=== PATIENT | female | born 1955 | race Caucasian/White ===

== ENCOUNTER → 2024-10-11 | Outpatient (CLI) | payer MEDICARE, BC, SELFPAY ==
[2024-10-11 15:03] LABS: Amylase 59 U/L (30-118); Cardiac Risk Estimate 3.5 RATIO (3.7-5.6); Cholesterol 180 mg/dL (132-200); HDL Cholesterol 52 mg/dL (40-60); LDL Cholesterol,Calculated 103 mg/dL (0-130); Lipase 62 U/L (12-53); Triglycerides 125 mg/dL (30-150)
[2024-10-11 16:07] LABS: Glucose Estimated Average 88 mg/dL (80-131); Hemoglobin A1C 4.7 % Hgb (4.8-6.0)
== END | disposition home or self-care (01) ==
LOC: COPL 11:12
PROVIDERS: PCP Family Medicine; Referring Provider Nurse Practitioner Family; Visit Provider Nurse Practitioner Family
DX: E78.5 Hyperlipidemia, unspecified (principal); R73.03 Prediabetes; K92.1 Melena; R19.5 Other fecal abnormalities
CPT/HCPCS: 36415; 80061; 82150; 83036; 83690

== ENCOUNTER → 2024-10-29 | Outpatient (CLI) | payer MEDICARE, BC, SELFPAY ==
--- NOTE | 2024-10-29 13:20 | XR_ITS ---
Examination: Bone densitometry Date and time of exam:October 29, 2024 1339 hours INDICATIONS: Hysterectomy age 37 postmenopausal femur fracture levothyroxine 10 years, personal history osteopenia Technique: Lumbar spine and hip total bone mineralization values of an calculated. Peak reference and age match control results have been displayed. Findings: Lumbar spine total bone mineralization is1.032 gm/cm2. This is 0.1 standard deviations below peak reference. This is 1.8 standard deviations above age-matched controls. Hip total bone mineralization is 0.824 gm/cm2 This is 1.0 standard deviations below peak reference. This is 0.4 standard deviations above age-matched controls Impression: There is normal mineralization based on lumbar spine measurements. There is osteopenia based on hip measurements Lumbar mineralization is decreased 0.1% compared with 07/26/2022 Hip mineralization is decreased 6.5% compared with July 26, 2022
== END | disposition home or self-care (01) ==
LOC: CDIM 13:11
PROVIDERS: PCP Family Medicine; Referring Provider Nurse Anesthetist, Certified Registered; Visit Provider Nurse Anesthetist, Certified Registered
DX: M85.88 Other specified disorders of bone density and structure, other site (principal)
CPT/HCPCS: 77080

== ENCOUNTER → 2024-11-27 | Outpatient (CLI) | payer MEDICARE, BC, SELFPAY ==
--- NOTE | 2024-11-27 15:13 | XR_ITS ---
Examination: Hand, right 3 views Technique: Hand AP, oblique, lateral 3 views Date and time of exam: November 27, 2024 1544 hours INDICATIONS: Right hand pain post injury one month ago FINDINGS: Severe osteopenia No acute fracture No dislocation Mild osteoarthritis interphalangeal joints IMPRESSION: No acute fracture
--- NOTE | 2024-11-27 15:13 | XR_ITS ---
Examination: Right elbow 3 views Technique: Elbow AP, oblique, lateral 3 views Exam date and time: November 27, 2024 1544 hours INDICATIONS: Injury to the elbow one month ago with elbow pain. FINDINGS: No elbow fracture or dislocation No elbow effusion IMPRESSION: No elbow fracture or dislocation.
--- NOTE | 2024-11-27 15:13 | XR_ITS ---
Examination: Wrist, right 3 views Technique: Wrist AP, oblique, lateral 3 views Date and time of exam: November 27, 2024 1544 hours INDICATIONS: Injury to the wrist one month ago, wrist pain. FINDINGS: Significant osteopenia Significant narrowing navicular trapezium joint No acute fracture No foreign body IMPRESSION: No acute fracture
== END | disposition home or self-care (01) ==
PROVIDERS: PCP Family Medicine
DX: S69.91XA Unspecified injury of right wrist, hand and finger(s), initial encounter (principal); S59.901A Unspecified injury of right elbow, initial encounter; X58.XXXA Exposure to other specified factors, initial encounter
CPT/HCPCS: 73080; 73110; 73130

== ENCOUNTER 2024-12-03 09:10 | Inpatient (IN) | payer MEDICARE, BC, SELFPAY ==
[2024-12-03] VITALS (15 sets, daily range): BP systolic 113–175; BP diastolic 60–113; PULSE 89–116; RESP 15–97; TEMP 36.9–38.7; O2SAT 96–98; BMI 18.0
--- NOTE | 2024-12-03 11:14 | EDNOTE_ITS ---
<Statement entered by Val Duarte MD - 12/05/24 15:28> As co-signing physician, I was present and available for consult prn. I concur with the plan and care as documented by the midlevel provider. ED General RME/HPI General Chief complaint: Altered Mental Status Stated complaint: AMS X 3 DAYS Time Seen by Provider: 12/03/24 11:09 Arrival date/time: 12/03/24 09:10 CC: Altered mental status HPI ongoing for the past 2 days at bedside said the patient has been sick when pressed he states the patient has decreased appetite. Patient is restless fidgety, nursing now reports that the patient has a core temp of 101.4. Sepsis initiated. At 1550 patient's told me the patient had nerve probes removed 5 days ago from her back Related Data Home Medications ?Medication ?Instructions ?Recorded ?Confirmed divalproex 500 mg tablet,delayed 1,500 mg PO HS #0 tabs 05/29/14 08/01/24 release (Depakote) TIZANIDINE HCL 4 mg PO HS ##0 06/25/15 08/01/24 pregabalin 75 mg capsule (Lyrica) 150 mg PO QPM #0 caps 06/25/15 08/01/24 erenumab-aooe 70 mg/mL 70 mg subcut QMONTH 06/21/18 08/01/24 subcutaneous auto-injector (Aimovig Autoinjector) levothyroxine 50 mcg tablet 50 mcg PO QDAY 06/21/18 08/01/24 omeprazole 40 mg capsule,delayed 40 mg PO QDAY 06/21/18 08/01/24 release oxybutynin chloride 5 mg tablet 5 mg PO DAILY 06/21/18 08/01/24 dicyclomine 10 mg capsule 10 mg PO TID 07/12/21 08/01/24 meclizine 12.5 mg tablet 12.5 mg PO Q12HR 07/12/21 08/01/24 nebivolol 5 mg tablet (Bystolic) 5 mg PO QDAY 07/12/21 08/01/24 venlafaxine 150 mg 150 mg PO QAM 07/12/21 08/01/24 capsule,extended release 24 hr venlafaxine 75 mg capsule,extended 75 mg PO QAM 07/12/21 08/01/24 release 24 hr atogepant 60 mg tablet (Qulipta) 60 mg PO QDAY 08/01/24 08/01/24 loratadine 10 mg tablet 10 mg PO QDAY 08/01/24 08/01/24 trazodone 50 mg tablet 50 mg PO QDAY 08/01/24 08/01/24 ubrogepant 100 mg tablet (Ubrelvy) 100 mg PO QDAY 08/01/24 08/01/24 Allergies Allergy/AdvReac Type Severity Reaction Status Date / Time Sulfa (Sulfonamide Allergy Severe HIVES Verified 08/01/24 12:19 Antibiotics) Review of Systems Review of Systems ROS Unobtainable: unobtainable due to mental status Past Medical History Past Medical History NEUROLOGIC: Positive Neurological Disorders and Migraine; Negative Seizures CARDIAC: Positive Cardiac Disorders and Hypertension; Negative Congestive Heart Failure RESPIRATORY: Positive Asthma (MILD ALLERGY RELATED), Pneumonia and Sleep Apnea; Negative Chronic Obstructive Pulmonary Disease (COPD) GASTROINTESTINAL: Positive Gastrointestinal Disorders (LLQ ABDOMINAL PAIN), Irritable Bowel and Gastroesophageal Reflux Disease; Negative Hepatitis GENITOURINARY: Positive Genitourinary Disorders and Renal Disease REPRODUCTIVE: Positive Previous Pregnancies (x4) MUSCULOSKELETAL: Positive Musculoskeletal Disorders and Arthritis ENDOCRINE: Positive Endocrine Disorders and Hypothyroidism; Negative Diabetes Mellitus Type 1 or Diabetes Mellitus Type 2 HEMATOLOGIC: Negative Blood Disorders PSYCHO/SOCIAL: Positive Depression and Anxiety OTHER HISTORY: Positive Anesthesia Reactions (HIGH TOLERANCE FOR MEDICATIONS), Chicken Pox and Measles; Negative Hospitalization, Shingles, Falls (NO FALLS BUT SLIGHTLY UNSTEADY), Blood Transfusions, Blood Transfusion Reaction, Chemotherapy, Radiation Therapy, MRSA or Cancer Family History FAMILY HISTORY: Positive Family Cancer (MOTHER- COLON CA) Surgical History SURGICAL: Positive Joint Replacement (LEFT KNEE), Open Reduction Internal Fixation (LEFT THIGH), Hysterectomy and Section; Negative Cardiac Surgery, Endocrine Surgery or Abdominal Surgery Social History SMOKING STATUS: Former smoker ED Exam Narrative Physical exam: [General: Restless, mildly agitated but not in any acute distress Head normocephalic HEENT: Eyes: Pupils are PERRLA EOMs are intact mouth pink dry membranes uvula is midline swallow symmetrical phonation is normal. All other subsystems of HEENT within acceptable limits Neck is supple nontender Chest equal chest rise nontender to palpation Respiratory: Clear to auscultation no wheezes crackles or rubs CV: Rate rhythm is regular no murmurs rubs or clicks Abdomen is distended secondary to body habitus soft nontender no masses positive bowel sounds all 4 quadrants Back: No CVA tenderness no spinous process tenderness from cervical spine thoracic and lumbar spine Skin: Intact no petechiae rash induration ulceration or crepitus Extremities: Moving all extremity against resistance cap refill less than 2 seconds neurosensory intact Neuro: Awake alert agitated Course Course Course Narrative: At 1329 the patient continues to be mildly agitated and I am not able to hold still enough for CT, at this time I ordered 2 mg of Ativan to calm her for head CT. Also ordered a VBG. Patient case and presentation presented Dr. Villareal neurologist, who is familiar with the patient, once the patient admitted he will consult the patient will need a LP to hold off on all any antibiotics or antivirals until the LP is completed. Quality Measures none Orders Category Date Time Status Bedside COVID-19 Antigen Test NOW Care 12/03/24 11:12 Active Bedside Influenza A&B Antigen Test NOW Care 12/03/24 11:13 Completed Regroover STAT Care 12/03/24 11:15 Active Continuous Pulse Oximetry STAT Care 12/03/24 11:15 Completed EKG (ED ONLY) *Do not use* NOW Care 12/03/24 11:15 Active In and Out Catheter X1PRN Care 12/03/24 11:15 Completed Insert IV NOW Care 12/03/24 11:15 Completed NPO STAT Care 12/03/24 11:15 Active Saline [Insert IV] NOW Care 12/03/24 11:12 Active Strict Intake and Output Routine Care 12/03/24 11:[address] head/brain wo con Stat Exams 12/03/24 12:35 Completed EKG (ED Only) Stat Exams 12/03/24 11:15 Ordered Acetaminophen Stat Lab 12/03/24 15:37 Ordered Ammonia Stat Lab 12/03/24 13:35 Completed B-Type Natriuretic Peptide Stat Lab 12/03/24 11:20 Completed Blood Culture (Lab) Stat Lab 12/03/24 11:25 Received CBC Stat Lab 12/03/24 11:20 Completed Comprehensive Metabolic Panel Stat Lab 12/03/24 11:20 Completed Drug Screen,Urine Stat Lab 12/03/24 13:16 Completed Free T4 (Free Thyroxine) Stat Lab 12/03/24 15:37 Ordered LDH (Lactate Dehydrogenase) Stat Lab 12/03/24 11:20 Completed Lactate (Lactic Acid) Stat Lab 12/03/24 11:20 Completed Lipase Stat Lab 12/03/24 11:20 Completed Magnesium Stat Lab 12/03/24 11:20 Completed Partial Thromboplastin Time Stat Lab 12/03/24 11:20 Completed Phosphorous Stat Lab 12/03/24 11:20 Completed Procalcitonin Stat Lab 12/03/24 11:20 Completed Prothrombin Time with INR Stat Lab 12/03/24 11:20 Completed Salicylate Stat Lab 12/03/24 15:37 Ordered TSH [Thyroid Stimulating Hormone] Stat Lab 12/03/24 15:37 Ordered Troponin I Stat Lab 12/03/24 11:20 Completed Urinalysis Stat Lab 12/03/24 13:16 Completed Urine Culture Stat Lab 12/03/24 13:16 Received VBG [Venous Blood Gas] Stat Lab 12/03/24 13:35 Completed Acetaminophen Tab [Tylenol Tab] Med 12/03/24 11:16 Discontinued 650 mg PO X1 ONE Ibuprofen Tab [Motrin Tab] Med 12/03/24 14:26 Discontinued 600 mg PO X1 ONE LORazepam [Ativan Inj] Med 12/03/24 12:35 Discontinued 1 mg IVP X1 ONE LORazepam [Ativan Inj] Med 12/03/24 13:25 Discontinued 2 mg IVP X1 ONE Sodium Chloride 0.9% 1000 ml [Ns] 1,000 ml Med 12/03/24 11:13 Discontinued IV 999 mls/hr Sodium Chloride 0.9% 1000 ml [Ns] 1,000 ml Med 12/03/24 11:17 Discontinued IV 999 mls/hr Oxygen Delivery NOW RT 12/03/24 11:15 Active Vital Signs Vital signs: Vital Signs Temperature 98.8 F 12/03/24 09:14 Pulse Rate 109 H 12/03/24 09:14 Respiratory Rate 19 12/03/24 09:14 Blood Pressure 175/87 H 12/03/24 09:14 Pulse Oximetry (%) 98 12/03/24 09:14 Oxygen Delivery Method Room Air 12/03/24 09:14 [facility] Patient data External records reviewed:: [facility] previous records and EMS form Clinical information provided by:: patient and EMS Social determinants that could affect healthcare access:: none Patient has the following chronic illnesses:: Hypothyroidism hypertension CKD How is presenting disease/condition affected by chronic disease/condition?: u neffected by Evaluation data The following diagnostics were reviewed and interpreted by me:: lab results, radiology exam(s) and EKG tracing(s) Lab and/or radiology exams considered but not ordered:: CBC shows a mild leukocytosis no anemia thrombocytopenia Coags within acceptable limits VBG shows a pH of 7.57 CO2 of 19 pO2 132 CMP shows a sodium 135 potassium 3.5 chloride of 101 CO2 of 21.5 BUN of 33 creatinine 1.6 glucose 133. Urine is negative for UTI UDS is positive for THC CT of the head is interpreted by me read by radiology shows motion artifact but no gross abnormality Ammonia level is negative Interpretation Summary: Patient continues to be agitated and restless in the bed. Patient's case discussed with Dr. Villareal who is familiar with the patient sees her on a regular basis and agrees to consult on this patient for admission. Dr. Rincon the resident accepts the patient for admission for Dr. Meng, attending. Medications Medications considered but not ordered:: None Medication administrations:: Medication Administration History Discontinued Medications Acetaminophen (Acetaminophen 325 Mg Tablet) 650 mg PO X1 ONE Stop: 12/03/24 11:17 Last Admin: 12/03/24 11:28 Dose: 650 mg Documented By: CANDICE Sodium Chloride (Ns) 1,000 mls @ 999 mls/hr IV .Q1H1M ONE Stop: 12/03/24 12:13 Last Infusion: 12/03/24 12:42 Dose: Infused Documented By: Admin: 12/03/24 11:30 Dose: 999 mls/hr Documented By: CANDICE Sodium Chloride (Ns) 1,000 mls @ 999 mls/hr IV .Q1H1M ONE Stop: 12/03/24 12:17 Last Infusion: 12/03/24 12:42 Dose: Infused Documented By: Admin: 12/03/24 11:30 Dose: 999 mls/hr Documented By: CANDICE Ibuprofen (Ibuprofen Tab 600 Mg Tablet) 600 mg PO X1 ONE Stop: 12/03/24 14:27 Lorazepam (Lorazepam 2 Mg/Ml Vial) 1 mg IVP X1 ONE Stop: 12/03/24 12:36 Last Admin: 12/03/24 12:43 Dose: 1 mg Documented By: CANDICE Lorazepam (Lorazepam 2 Mg/Ml Vial) 2 mg IVP X1 ONE Stop: 12/03/24 13:26 Last Admin: 12/03/24 14:20 Dose: 2 mg Documented By: DB None Consultations Consultation(s) initiated? (list below): No Diagnosis Differential Diagnosis ED Complaint MDM: Altered mental status intercranial hemorrhage sepsis Most likely diagnosis given after review of the tests above:: Altered mental status Admission Indicated Admission indicated?: indicated Explain why admission is indicated or not indicated:: Further medical management Admission Request Was there a request for admission?: No Disposition Plan Disposition Plan: Admit Medical Decision Making Differential Diagnosis Differential Diagnosis: Altered mental status intercranial hemorrhage sepsis Lab Data 12/03/24 11:20 12/03/24 11:20 Labs: Lab Results 12/03/24 12/03/24 12/03/24 Range/Units 11:20 13:16 13:35 WBC 12.4 H (3.6-11.0) Thou/mm3 RBC 3.74 L (4.00-5.20) Miln/mm3 Hgb 11.5 L (12.0-16.0) g/dL Hct 32.1 L (36.0-46.0) % MCV 86 (80-100) fL MCH 30.7 (25.0-35.0) pg MCHC 35.8 (31.0-37.0) g/dl RDW Std Deviation 41.5 (36.4-46.3) fL Plt Count 240 (140-440) Thou/mm3 Neut % (Auto) 76 (37-80) % Lymph % (Auto) 15 (10-50) % [place] % (Auto) 9 (0-12) % Eos % (Auto) 0 (0-10) % Baso % (Auto) 0 (0-2.5) % Neut # (Auto) 9.5 H (1.8-7.7) Thou/mm3 Lymph # (Auto) 1.8 (1.0-4.8) Thou/mm3 [place] # (Auto) 1.1 H (0.0-0.8) Thou/mm3 Eos # (Auto) 0.0 (0.0-0.5) Thou/mm3 Baso # (Auto) 0.0 (0.0-0.2) Thou/mm3 Immature Gran # (Auto) 0.04 H (0.00-0.00) Thou/mm3 Absolute Nucleated RBC 0.00 (0.00-0.00) Thou/mm3 Immature Gran % 0 (0-0) % Nucleated RBC % 0 (0) /100 WBC PT 11.5 (9.0-12.2) Seconds INR 1.1 (0.9-1.3) APTT 28.5 (22.0-36.0) Seconds VBG pH 7.57 (7.33-7.66) VBG pCO2 19 L (36-56) mmHg VBG pO2 132 H (15-58) mmHg VBG O2 Sat (Torie) 100 H (96-97) % VBG Base Excess -3 (-3-3) Sodium 135 L (136-145) mMol/L Potassium 3.5 (3.4-5.1) mMol/L Chloride 101 (98-107) mMol/L Carbon Dioxide 21.5 (20.0-31.0) mMol/L Anion Gap 13 (7-16) BUN 33 H (9-23) mg/dL Creatinine 1.6 H (0.6-1.3) mg/dL Estim Creat Clear Calc Not Performed. eGFR 35 L (60 - ) See Note BUN/Creatinine Ratio 21 H (12-20) Ratio Glucose 133 H (74-106) mg/dL Calculated Osmolality 279 (275-295) Lactic Acid 1.9 (0.4-2.0) mMol/L Calcium 10.6 (8.3-10.6) mg/dL Corrected Calcium 10.6 H (8.5-10.1) mg/dL Phosphorus 3.1 (2.4-5.1) mg/dL Magnesium 1.5 L (1.6-2.6) mg/dL Total Bilirubin 0.8 (0.3-1.2) mg/dL AST 55 H (0-34) U/L ALT 34 (10-49) U/L Alkaline Phosphatase 43 L (46-116) U/L Ammonia < 10 L (11-32) uMol/L Lactate Dehydrogenase 310 H (120-246) U/L Troponin I 0.024 (0.0-0.045) ng/mL B-Natriuretic Peptide 105 H (0-100) pg/mL Total Protein 7.9 (5.7-8.2) gm/dL Albumin 4.5 (3.4-4.8) gm/dL Globulin 3.4 (2.3-3.5) gm/dL Albumin/Globulin Ratio 1.3 (1.2-2.2) Lipase 42 (12-53) U/L Procalcitonin 0.08 (0.0-0.49) ng/ml Ur Collection Type Clean Catch Urine Color Yellow (Lt Yel-Yel) Urine Clarity Clear (Clear/Hazy) Urine pH 8.0 H (5.0-7.0) Ur Specific [place] 1.019 (1.001-1.035) Urine Protein 1+ A (Neg - Trace) Urine Glucose (UA) Negative (Negative) Urine Ketones 1+ A (Negative) Urine Blood Negative (Negative) Urine Nitrite Negative (Negative) Urine Bilirubin Negative (Negative) Urine Urobilinogen (Auto) Negative (0.0-1.0) mg/dL Ur Leukocyte Esterase Negative (Negative) Urine RBC < 1 (0-3) /hpf Urine WBC 1 (0-5) /hpf Ur Squamous Epith Cells < 1 (0-5) /hpf Urine Bacteria None (None) Urine Opiates Screen Negative (Negative) Urine Fentanyl Screen Negative (Negative) Ur Barbiturates Screen Negative (Negative) U Amphetamin/Meth Scrn Negative (Negative) U Benzodiazepines Scrn Negative (Negative) U Cocaine Metab Screen Negative (Negative) U Marijuana (THC) Screen Positive A (Negative) Discharge Plan Plan Patient Disposition: Other Care w/in Hosp ([facility]) Patient condition on transfer: Stable Prescriptions/Referrals Prescriptions/Med Rec: No Action divalproex [Depakote] 500 MG tablet,delayed release (DR/EC) 1,500 mg PO HS Qty: 0 pregabalin [Lyrica] 75 MG capsule 150 mg PO QPM Qty: 0 TIZANIDINE HCL 2 MG capsule 4 mg PO HS Qty: 0 omeprazole 40 mg Capsule,Delayed Release(Dr/Ec) 40 mg PO QDAY levothyroxine 50 mcg Tablet 50 mcg PO QDAY oxybutynin chloride 5 mg Tablet 5 mg PO DAILY Aimovig Autoinjector 70 mg/mL Auto-Injector 70 mg SUB-Q QMONTH meclizine 12.5 mg tablet 12.5 mg PO Q12HR Patient Comments: TAKE 2 TABLETS BY MOUTH NEEDED TWICE A DAY FOR 10 DAYS nebivolol [Bystolic] 5 mg tablet 5 mg PO QDAY Patient Comments: TAKE 1 TABLET BY MOUTH EVERY DAY venlafaxine 75 mg capsule,extended release 24hr 75 mg PO QAM Patient Comments: TAKE ONE CAPSULE BY MOUTH EVERY MORNING venlafaxine 150 mg capsule,extended release 24hr 150 mg PO QAM Patient Comments: TAKE 2 CAPSULES BY MOUTH EVERY MORNING dicyclomine 10 mg capsule 10 mg PO TID trazodone 50 mg tablet 50 mg PO QDAY Patient Comments: TAKE 1 TABLET BY MOUTH EVERY DAY AT BEDTIME NEEDED FOR INSOMNIA FOR 90 DAYS loratadine 10 mg Tablet 10 mg PO QDAY Ubrelvy 100 mg Tablet 100 mg PO QDAY Qulipta 60 mg tablet 60 mg PO QDAY Patient Comments: TAKE 1 TABLET BY MOUTH EVERY DAY Referrals: Jadon Smith MD [Primary Care Provider] - In 1 week Problem List Clinical Impression: Altered mental status Patient/Caregiver Discharge Instructions Print Language: Macedonian Stand Alone Forms: Seema Award Info., Patient Portal Info Letter PA/TRACK MAN Supervising Physician PA/TRACK MAN Supervising Physician: Fernando Duron ENP
[2024-12-03] MEDS: ACETAMINOPHEN 325 MG TABLET 650 MG PO (11:28)
[2024-12-03] MEDS: SODIUM CHLORIDE 0.9% 1000 ML 1,000 ML 999 ML IV ×3 (11:30→18:06)
[2024-12-03 11:36] LABS: Lactate (Lactic Acid) 1.9 mMol/L (0.4-2.0)
[2024-12-03 11:42] LABS: Basophils % (Auto) 0 % (0-2.5); Eosinophils % (Auto) 0 % (0-10); Hematocrit 32.1 % (36.0-46.0); Hemoglobin 11.5 g/dL (12.0-16.0); Immature Granulocytes % (Auto) 0 % (0-0); Immature Granulocytes Auto 0.04 Thou/mm3 (0.00-0.00); Lymphocytes # (Auto) 1.8 Thou/mm3 (1.0-4.8); Lymphocytes % (Auto) 15 % (10-50); Mean Corpuscular HGB Conc 35.8 g/dl (31.0-37.0); Mean Corpuscular Hemoglobin 30.7 pg (25.0-35.0); Mean Corpuscular Volume 86 fL (80-100); Monocytes # (Auto) 1.1 Thou/mm3 (0.0-0.8); Monocytes % (Auto) 9 % (0-12); Neutrophils # (Auto) 9.5 Thou/mm3 (1.8-7.7); Neutrophils % (Auto) 76 % (37-80); Nucleated Red Blood Cell % 0 /100 WBC (0); Platelet Count 240 Thou/mm3 (140-440); RDW Standard Deviation 41.5 fL (36.4-46.3); Red Blood Count 3.74 Miln/mm3 (4.00-5.20); White Blood Count 12.4 Thou/mm3 (3.6-11.0)
[2024-12-03 11:53] LABS: INR 1.1 (0.9-1.3); Partial Thromboplastin Time 28.5 Seconds (22.0-36.0); Prothrombin Time 11.5 Seconds (9.0-12.2)
[2024-12-03 12:08] LABS: Alanine Aminotransferase 34 U/L (10-49); Albumin, Serum 4.5 gm/dL (3.4-4.8); Albumin/Globulin Ratio 1.3 (1.2-2.2); Alkaline Phosphatase 43 U/L (46-116); Anion Gap 13 (7-16); Aspartate Amino Transferase 55 U/L (0-34); BUN/Creatinine Ratio 21 Ratio (12-20); Bilirubin,Total 0.8 mg/dL (0.3-1.2); Blood Urea Nitrogen 33 mg/dL (9-23); Calcium 10.6 mg/dL (8.3-10.6); Calcium (Corrected) 10.6 mg/dL (8.5-10.1); Carbon Dioxide 21.5 mMol/L (20.0-31.0); Chloride 101 mMol/L (98-107); Creatinine (Component) 1.6 mg/dL (0.6-1.3); Globulin 3.4 gm/dL (2.3-3.5); Glucose 133 mg/dL (74-106); LDH (Lactate Dehydrogenase) 310 U/L (120-246); Lipase 42 U/L (12-53); Magnesium 1.5 mg/dL (1.6-2.6); Osmolality,Calculated 279 (275-295); Phosphorous 3.1 mg/dL (2.4-5.1); Potassium 3.5 mMol/L (3.4-5.1); Procalcitonin 0.08 ng/ml (0.0-0.49); Sodium 135 mMol/L (136-145); Total Protein 7.9 gm/dL (5.7-8.2); Troponin I 0.024 ng/mL (0.0-0.045); eGFR 35 See Note
[2024-12-03 12:20] LABS: B-Type Natriuretic Peptide 105 pg/mL (0-100)
--- NOTE | 2024-12-03 12:26 | PC.NURSE ---
Unable to complete EKG due to Pt moving
--- NOTE | 2024-12-03 12:35 | XR_ITS ---
Examination: CT brain head without contrast. 2-D sagittal coronal reconstructions Date and time of exam:December 03, 2024 1455 hours INDICATIONS: Altered mental status today COMPARISON: June 16, 2018 CTDI: vol (mGy):45.2 DLP: (mGycm):973 Technique: Multiple CT axial sections of the brain have been obtained, 5 mm slice thickness. Contrast has not been administered. 2-D sagittal, coronal reconstructions have been obtained Low dose protocols were performed. One or more of the following dose reduction techniques were used; automated exposure control, adjustment of the mA and/or KV according to patient size, use of iterative reconstruction technique. Findings: Patient motion significantly degrades scan image quality Ventricles are not enlarged No gross hemorrhage or mass effect IMPRESSION: Patient motion significantly degrades scan image quality No gross hemorrhage or mass effect
[2024-12-03] MEDS: LORazepam 2 MG/ML VIAL 1 MG IVP (12:43)
[2024-12-03 13:29] LABS: Collection Type, Urine Clean Catch
[2024-12-03 13:45] LABS: Base Excess, Venous -3 (-3-3); O2 Saturation, Venous 100 % (96-97); PCO2, Venous 19 mmHg (36-56); PO2, Venous 132 mmHg (15-58); pH, Venous 7.57 (7.33-7.66)
[2024-12-03 13:48] LABS: Bilirubin,Urine Negative (Negative); Blood,Urine Negative (Negative); Clarity,Urine Clear (Clear/Hazy); Color,Urine Yellow (Lt Yel-Yel); Glucose, Urine Negative (Negative); Ketones,Urine 1+ (Negative); Leukocyte Esterase,Urine Negative (Negative); Nitrite,Urine Negative (Negative); Protein,Urine 1+ (Neg - Trace); RBC,Urine < 1 /hpf (0-3); Specific Gravity,Urine 1.019 (1.001-1.035); Squamous Epithelial Cell,Urine < 1 /hpf (0-5); Urobilinogen,Urine Negative mg/dL (0.0-1.0); WBC,Urine 1 /hpf (0-5)
[2024-12-03 13:55] LABS: Amphetamine/Methamp Scrn,U Negative (Negative); Barbiturate Screen,Urine Negative (Negative); Benzodiazepines Screen,Urine Negative (Negative); Benzoylecgonine Screen, Ur Negative (Negative); Fentanyl Screen,Urine Negative (Negative); Opiate Screen,Urine Negative (Negative); THC Screen,Urine Positive (Negative)
[2024-12-03 14:07] LABS: Ammonia < 10 uMol/L (11-32)
[2024-12-03] MEDS: LORazepam 2 MG/ML VIAL IVP ×2 (14:20→19:37)
[2024-12-03 16:22] LABS: Acetaminophen 4.4 mcg/mL (10.0-20.0); Free T4 (Free Thyroxine) 1.33 ng/dL (0.89-1.76); Salicylate < 3.0 mg/dL; Thyroid Stimulating Hormone 1.39 uIU/mL (0.55-4.78)
[2024-12-03 16:47] LABS: C-Reactive Protein 0.7 mg/dL (0.0-0.9)
[2024-12-03 16:51] LABS: Sed Rate (ESR) 103 mm/hr (0-30)
--- NOTE | 2024-12-03 17:11 | XR_ITS ---
Examination: AP chest single view Technique one AP portable supine chest single view Exam date and time: December 03, 2024 1755 hours Comparison September 22, 2033 INDICATIONS: Shortness of breath fever beginning today. FINDINGS: Normal heart size Mildly ectatic thoracic aorta No lobar pneumonia or pulmonary edema IMPRESSION: No lobar pneumonia or pulmonary edema
[2024-12-03 17:16] LABS: HIV (1&2) Antibody Rapid Non-Reactive
--- NOTE | 2024-12-03 17:21 | ESHP_ITS ---
<Statement entered by Dwayne Gentile MD - 12/03/24 17:29> This patient is a 69-year-old female with past medical history of hypothyroidism, lupus, depression with anxiety on antipsychotics and antidepressants, recently had spinal stimulator placed on 11/25/2024 and removed on 11/29/2024, presented with with altered mental status and hypothermia. Patient was found to have fever, tachycardia, tachypnea and elevated blood pressure on admission. Patient was breathing well on room air. Patient met 4/4 SIRS criteria with fever tachycardia white count elevation and possible source which is likely unknown at this point. Labs shows significant leukocytosis and normocytic anemia. Chemistry panel was showing hyponatremia, WICHO with BUN 33 and creatinine 1.6. Blood glucose 133. Lactic acid was normal. Corrected calcium 10.6. Magnesium was 1.5. AST 55 and ALT 34. Ammonia was negative. LDH was 310. CRP was negative. BNP was 105. TSH and T4 was unremarkable. UA showed pH 8.0 proteinuria and ketones. U tox was positive for marijuana. Acetaminophen level 4.4. Head CT was negative. Pending blood cultures and urine culture. Patient follows up neurologist, Dr Villareal as outpatient. Patient is admitted for sepsis likely unknown source at this point and will be managed for acute encephalopathy likely multifactorial from medications use versus Serotonin syndrome versus possible epidural abscess versus pneumonia. Neurologist recommended to not start any antibiotics as she wants to perform LP before that. Patient received Ativan 2 doses for agitation. Patient is given IV fluids at 50 cc/h. Tylenol for pain and fever. We ordered creatinine kinase, cocci serology, blood cultures, hep panel, CT lumbar spine with contrast, CT chest abdomen pelvis without contrast, strict RADHA's, neurochecks every 4 hourly and nurse swallow screen. Patient's has been updated that patient will need an LP for possible ruling out infectious process including meningitis. Med rec pending. All labs and orders were reviewed. I saw and examined the patient, and I agree with current management stated by Dr Indra MD,PGY1. Plan of care was discussed with the attending physician and resident physician. Disclaimer: Despite multiple revisions, due to the dictation software being used, the document bellow may not be free of grammatical errors including phonetic/typographic errors. However, this does not deter from our commitment to providing health care in the patient's best interest in mind. Dr. Seferino MD, PGY 2 Documentation for date of: 12/03/24 HPI History of Present Illness History of present illness: This is a 69-year-old female with past medical history of major depressive disorder, generalized anxiety disorder, chronic pain syndrome, neuropathic pain, lupus, dementia, chronic kidney disease stage IIIb, hypothyroidism presented to the emergency room brought in by for altered mental status. Patient has chronic pain and most recently had a spinal cord stimulator inserted on 11/25 but subsequently removed 11/29 due to urinary incontinence. Patient's states that on Thursday 11/30 patient began to feel nauseous, not feeling well, and had a slight subjective fever. Patient's gave 2 pills of ibuprofen and states that the fevers resolved. Patient's asked her what felt wrong and he states that she could not state specifically what she felt. 2 days later patient began to feel more confused, but still able to take meds. This morning patient became more altered and patient's decided to take her to the hospital. Of note patient has an extensive psychiatric and neurologic history (medications described below) which includes multiple medications that she has been taking for years, however denies any missed doses or changes in medications recently. Patient follows Dr. Villareal as outpatient. On arrival to the emergency department vitals show initial blood pressure of 175/87, pulse of 109, respiratory rate of 19, temperature of 98.8- later 101.7, saturating 98% on room air. Chemistry panel was showing hyponatremia, WICHO with BUN 33 and creatinine 1.6. Blood glucose 133. Lactic acid was normal. Corrected calcium 10.6. Magnesium was 1.5. AST 55 and ALT 34. Ammonia was negative. LDH was 310. CRP was negative. BNP was 105. TSH and T4 was unremarkable. UA showed pH 8.0 proteinuria and ketones. U tox was positive for marijuana. Acetaminophen level 4.4. Head CT was negative. CXR (-) for lobar pneumonia or pulmonary edema. CT head (-) for gross hemorrhage or mass effect Neurology consulted in the emergency department and suggested to perform a lumbar puncture. Recommended not to start antibiotics as she wants to perform LP first. Patient received 2 doses of Ativan in ED due to agitation. On physical exam patient appears shaky, hot to the touch, confused. Patient is alert and oriented to only person and place. Patient is shaking, able to answer questions very intermittently. Intermittently follows commands. Physical exam is limited to patient's mentation. No rebound tenderness, no skin breaks, erythema, swelling, purulent drainage around any skin sites, including skin directly above thoracic, lumbar, sacral spine. Pupils are 4 mm equal round and reactive to light. No large abrasions or ecchymosis noted. No abdominal pain upon palpation, no rebound tenderness, abdomen is soft and non-distended. Unable to perform full neuroexam, Babinski appears negative at this time. GCS 13 on exam. Patient will be admitted for acute encephalopathy, toxic vs metabolic vs infectious. PMH:major depressive disorder, generalized anxiety disorder, chronic pain syndrome, neuropathic pain, lupus, dementia, chronic kidney disease stage IIIb, hypothyroidism PSH: 3 C-sections, multiple orthopedic operations including knee replacements, left femur repair with hardware in place. Social: [place]-none Smoke/Drugs: states that patient is habitually smokes marijuana Exam Vital Signs Temp Pulse Resp BP Pulse Ox O2 Del Method 101.7 F H 115 H 20 137/113 H 98 Room Air 12/03/24 15:53 12/03/24 15:53 12/03/24 15:53 12/03/24 15:53 12/03/24 15:53 12/03/24 15:53 Narrative Exam GENERAL: Patient appears to be in acute distress, shivering, alert and oriented only to person place NEURO: Unable to assess at this time, Babinski appears negative. HEENT: Pupils 4 mm equal round and reactive to light CARDIO: No chest pain on palpation. Heart RRR, no obvious murmurs PULM: No noted coughing/dyspnea. Lungs CTA B/L, no R/W/R GI: Abdomen soft, nondistended, no pain on palpation. BSx4. No rebound tenderness URO/OFFICE SERVICES ASSOCIATE:: No further abnormalities noted. Yu catheter SKIN/MSK/EXT: No wounds/rashes/edema/amputations, no pain on palpation. Pedal pulses present B/L Results: Labs 12/04/24 04:45 12/04/24 04:45 Labs: Short CBC 12/03/24 Range/Units 11:20 WBC 12.4 H (3.6-11.0) Thou/mm3 Hgb 11.5 L (12.0-16.0) g/dL Hct 32.1 L (36.0-46.0) % Plt Count 240 (140-440) Thou/mm3 BMP 12/03/24 11:20 Sodium 135 L Potassium 3.5 Chloride 101 Carbon Dioxide 21.5 BUN 33 H Creatinine 1.6 H Glucose 133 H Calcium 10.6 Cardiac Enzymes 12/03/24 Range/Units 11:20 Troponin I 0.024 (0.0-0.045) ng/mL Liver Function 12/03/24 Range/Units 11:20 Total Bilirubin 0.8 (0.3-1.2) mg/dL AST 55 H (0-34) U/L ALT 34 (10-49) U/L Alkaline Phosphatase 43 L (46-116) U/L Albumin 4.5 (3.4-4.8) gm/dL Urine 12/03/24 Range/Units 13:16 Urine Color Yellow (Lt Yel-Yel) Urine Clarity Clear (Clear/Hazy) Urine pH 8.0 H (5.0-7.0) Ur Specific Watson 1.019 (1.001-1.035) Urine Protein 1+ A (Neg - Trace) Urine Glucose (UA) Negative (Negative) ABG Interpretation ABG results: 12/03/24 13:35 VBG pH 7.57 VBG pCO2 19 L VBG pO2 132 H VBG Base Excess -3 Quality Measures Quality Measures none Advance care planning discussed with:: other Medications Home Medications and Allergies Home Medications ?Medication ?Instructions ?Recorded ?Confirmed ?Type divalproex 500 mg tablet,delayed 1,500 mg PO HS #0 tabs 05/29/14 12/03/24 History release (Depakote) pregabalin 75 mg capsule (Lyrica) 150 mg PO QPM #0 caps 06/25/15 12/03/24 History levothyroxine 50 mcg tablet 50 mcg PO QAM 06/21/18 12/03/24 History omeprazole 40 mg capsule,delayed 40 mg PO QDAY 06/21/18 12/03/24 History release dicyclomine 10 mg capsule 10 mg PO BID 07/12/21 12/03/24 History meclizine 12.5 mg tablet 12.5 mg PO Q12HR PRN Nausea 07/12/21 12/03/24 History nebivolol 5 mg tablet (Bystolic) 2.5 mg PO QDAY 07/12/21 12/03/24 History venlafaxine 150 mg 150 mg PO QAM 07/12/21 12/03/24 History capsule,extended release 24 hr venlafaxine 75 mg capsule,extended 75 mg PO QAM 07/12/21 12/03/24 History release 24 hr atogepant 60 mg tablet (Qulipta) 60 mg PO QAM 08/01/24 12/03/24 History loratadine 10 mg tablet 10 mg PO QDAY 08/01/24 12/03/24 History trazodone 50 mg tablet 50 mg PO HS 08/01/24 12/03/24 History ubrogepant 100 mg tablet (Ubrelvy) 100 mg PO QDAY 08/01/24 12/03/24 History albuterol sulfate 2.5 mg/3 mL 2.5 mg inhalation Q6H PRN 12/03/24 12/03/24 History (0.083 %) solution for nebulization Shortness Of Breath Or Wheezing bupropion HCl 150 mg 24 hr tablet, 150 mg PO QAM 12/03/24 12/03/24 History extended release divalproex 500 mg tablet,delayed 1,500 mg PO HS 12/03/24 12/03/24 History release (Depakote) donepezil 10 mg tablet 10 mg PO QPM 12/03/24 12/03/24 History fluticasone fur. 100 mcg-umeclid 1 inh inhalation QDAY PRN 12/03/24 12/03/24 History 62.5 mcg-vilant 25 mcg Shortness Of Breath Or Wheezing inhalat.powder (Trelegy Ellipta) hydroxychloroquine 200 mg tablet 200 mg PO QDAY 12/03/24 12/03/24 History hydroxyzine pamoate 50 mg capsule 100 mg PO HS 12/03/24 12/03/24 History memantine 10 mg tablet 10 mg PO BID 12/03/24 12/03/24 History montelukast 10 mg tablet 10 mg PO QDAY 12/03/24 12/03/24 History nuixhxir-vvon-lgqh 8 mg-folic 400 1 tab PO QDAY 12/03/24 12/03/24 History mcg-K 50 mcg-lutein 300 mcg tablet (Multivitamin Women 50 Plus) tizanidine 4 mg tablet 4 mg PO QPM 12/03/24 12/03/24 History trospium 60 mg capsule,extended 60 mg PO QAM 12/03/24 12/03/24 History release 24 hr ubrogepant 100 mg tablet (Ubrelvy) 100 mg PO QDAY PRN Migraine 12/03/24 12/03/24 History Headache vit A 7,160 unit-vit C 113 mg-vit 2 tab PO QAM 12/03/24 12/03/24 History E 100 umhe-opbm-cxqisw tablet vitamin B complex 1 tab PO QDAY 12/03/24 12/03/24 History Allergies Allergy/AdvReac Type Severity Reaction Status Date / Time Sulfa (Sulfonamide Allergy Severe HIVES Verified 08/01/24 12:19 Antibiotics) Visit Medications Magnesium Sulfate (Magnesium Sulfate Ivpb) 2 gm in 50 mls @ 25 mls/hr IV X1 ONE Stop: 12/03/24 18:10 Sodium Chloride (Ns) 1,000 mls @ 999 mls/hr IV .Q1H1M ONE Stop: 12/03/24 17:55 Sodium Chloride (Ns) 1,000 mls @ 50 mls/hr IV .Q20H JOHANNA Stop: 01/02/25 17:55 Ondansetron HCl (Ondansetron Inj 2 Mg/Ml Inj 2 Ml) 4 mg IV Q6H PRN; Protocol PRN Reason: NAUSEA OR VOMITING Stop: 01/02/25 17:04 Discontinued Medications Acetaminophen (Acetaminophen 325 Mg Tablet) 650 mg PO X1 ONE Stop: 12/03/24 11:17 Last Admin: 12/03/24 11:28 Dose: 650 mg Acetaminophen (Acetaminophen Supp 650 Mg Supp) 650 mg [place] X1 ONE Stop: 12/03/24 15:57 Sodium Chloride (Ns) 1,000 mls @ 999 mls/hr IV .Q1H1M ONE Stop: 12/03/24 12:13 Last Infusion: 12/03/24 12:42 Dose: Infused Sodium Chloride (Ns) 1,000 mls @ 999 mls/hr IV .Q1H1M ONE Stop: 12/03/24 12:17 Last Infusion: 12/03/24 12:42 Dose: Infused Ibuprofen (Ibuprofen Tab 600 Mg Tablet) 600 mg PO X1 ONE Stop: 12/03/24 14:27 Last Admin: 12/03/24 15:59 Dose: Not Given Lorazepam (Lorazepam 2 Mg/Ml Vial) 1 mg IVP X1 ONE Stop: 12/03/24 12:36 Last Admin: 12/03/24 12:43 Dose: 1 mg Lorazepam (Lorazepam 2 Mg/Ml Vial) 2 mg IVP X1 ONE Stop: 12/03/24 13:26 Last Admin: 12/03/24 14:20 Dose: 2 mg Assessment & Plan Plan #Acute encephalopathy, likely toxic versus metabolic #Encephalopathy secondary to bacterial or viral cause possible #Serotonin Syndrome #Sepsis of Unknown source Pt presented with Fever, Tachycardia, elevated white count, hypertension, normal respiratory rate, altered mental status. Patient presented confused in the emergency room, AO x [address]. Patient recently has had spinal cord stimulator implanted on 11/25 and subsequently removed on 11/29 due to bladder incontinence. Symptoms began Monday. See above history. Patient has a history of major depressive disorder, generalized anxiety disorder, chronic pain and takes venlafaxine, Depakote, bupropion, memantine, donepezil, tizanidine trazodone, pregabalin at home UA appears negative ?Neurology Dr. Villareal consulted, to perform lumbar puncture. Holding off antibiotics at this time until performed. -CT abdomen pelvis ordered -CT lumbar spine with contrast ordered -ESR, CRP's, Pro-Nader ordered -Hepatitis panel, HIV, cocci ordered, pending -Blood culture obtained, pending -Holding all home psychiatric/neurological medications -CK ordered, pending -Bolus 1 L NS with maintenance rate running at 100 ml/hr after Seizure precautions in place Aspiration precautions in place Neurochecks every 4 hours #Possible Seizure Disorder Pt with possible seizure activity - Ativan 2 mg Q30min for breakthrough seizures - CK ordered, pending #History of major depressive disorder #History of General Anxiety disorder #Chronic pain syndrome #Neuropathic pain #History of migraines #History of lupus #Dementia Extensive history of major depressive disorder and general anxiety disorder for many years. No recent medication changes. Extensive history of chronic pain, possibly neuropathic Diagnosed with lupus 6 months ago, started hydroxychloroquine shortly after Recently diagnosed with dementia with Dr. Villareal, started on memantine and donepezil Patient has a home medication list that includes trazodone, pregabalin, Ubrelvy, Qulipta, memantine, donepezil, hydroxychloroquine venlafaxine, bupropion, Depakote -Holding all psychiatric/neurological medications at this point in time, pending neurology recommendations #History of chronic kidney disease stage III Patient's states that she has a history of CKD stage III 3B. Patient's baseline creatinine appears to be 1.4 BUN 33, creatinine 1.6 today ?Emergency department gave 2 L NS ?Will give additional 1 L bolus, and start maintenance fluids after ?Avoid nephrotoxic agents #History of hypothyroidism ?TSH levels ordered, pending ?Holding home donepezil and memantine #Urinary incontinence Patient's stated that shortly after spinal cord stimulator was implanted patient had bladder incontinence -Yu catheter -Strict I and O's Diet: NPO now GI: Pantoprazole DVT: SCDs, chemoprophylaxis held in setting of pending lumbar puncture Yu: Yu catheter Lines: Peripheral Dispo: Telemetry Med Rec: Pending Code: Conditional code: Patient accepts compressions, denies intubation per at bedside- DNI Hospitalization for observation, work-up, & management of acute encephalopathy, toxic versus metabolic Patient was seen, plan was discussed with attending Dr. Meng and senior residents on service Indra Villalobos D.O. PGY1 Anesthesiology Attending Provider Attestation/Addendum I have discussed and was present for the essential components of the history, physical examination, diagnosis, and treatment plan with the resident. I agree with the patient's care as documented by the resident and amended herein by me. Elijah Meng DO. Patient seen and evaluated this AM. In Short, patient is a 69-year-old female with significant past medical history of lupus, MDD, DAVION, bipolar disorder, possible migraine headaches, CKD 3 and hypertension who presented to the ED for acute encephalopathy subsequently admitted for suspected tardive dyskinesia considering the copious psychiatric medications the patient is on. Patient follows with neurologist, Dr Villareal regularly who has been consulted by the ED. Will admit the patient to telemetry with frequent neurochecks, MRI brain ordered, EEG ordered, will reach out to neurology for medication recommendations and what of her home meds to continue or discontinue at this time. Considering the patient did present with fever, likely medication induced, I originally did want to castaneda scan the patient to look for any sources of infection however the patient's movement at this time, despite Ativan, is too much to put her in for CT. Will reevaluate tomorrow. ESR, CRP, Pro-Nader, CK and ferritin have been ordered, appreciate neurology recommendations will continue monitor closely Although this document has been carefully reviewed, there may still be some phonetic and other typographical errors. These errors are purely grammatical due to imperfections in the software program and should not be construed in any way to compromise the substance of the patient's medical care during this visit.
[2024-12-03 17:43] LABS: Ferritin 188 ng/mL (7.3-270.7)
[2024-12-03] MEDS: ACETAMINOPHEN SUPP 650 MG SUPP PR (17:49)
[2024-12-03 17:52] LABS: Creatine Kinase 1096 U/L (34-171)
[2024-12-03] MEDS: POTASSIUM CHL 10 mEq IVPB 10 MEQ/100 ML BAG 100 MEQ IV ×2 (18:02→19:25)
[2024-12-03] MEDS: Magnesium Sulfate 2 GM Ivpb 2 GM/50 ML BAG IV (18:04)
[2024-12-03 18:27] LABS: Hepatitis A Antibody IgM Non Reactive (Non React); Hepatitis B Core Antibody IgM Non Reactive (Non React); Hepatitis B Surface Antigen Non Reactive (Non React); Hepatitis C Antibody Non Reactive (Non React)
[2024-12-03] MEDS: Magnesium Sulfate 4 GM Ivpb 4 GM/50 ML BAG IV (19:28)
--- NOTE | 2024-12-03 19:35 | PC.NURSE ---
DR. GIRALDO AT BEDSIDE TO SEE PT, SPEAKING WITH . TO DO LUMBAR PUNCTURE A THIS TIME. CONSENT FORM OBTAINED.
[2024-12-03 20:38] LABS: Coccid Serology, CF CSF (UCD)* See Sep Rpt
[2024-12-03 20:52] LABS: Glucose,CSF 64 mg/dL (40-70); Protein Total,CSF 28 mg/dL (8-32)
[2024-12-03 21:10] LABS: CSF Red Blood Cell 0 /cmm; CSF White Blood Cell 2 /cmm
[2024-12-03 21:11] LABS: CSF Color Colorless (Colorless)
--- NOTE | 2024-12-03 21:58 | PC.NURSE ---
PT TAKEN TO CT, UNABLE TO DO SCAN AT THIS TIME. PT MOVING TOO MUCH.
[2024-12-03] MEDS: SODIUM CHLORIDE 0.9% 1000 ML 1,000 ML 100 ML IV (22:22)
--- NOTE | 2024-12-03 23:09 | ESCONSULT_ITS ---
History of Present Illness Data of Consult Requesting Physician: Chris Meng DO Primary Care Provider: Jadon Smith MD Consult Narrative History of present illness: This is a 69-year-old female with major depressive disorder, generalized anxiety disorder, chronic pain syndrome, neuropathy, lupus, dementia, chronic kidney disease stage IIIb, hypothyroidism presented to the ER brought in by for altered mental status. Patient recently had a spinal cord stimulator inserted on 11/25 but subsequently removed on 11/29 due to urinary incontinence. Patient's states that on Thursday 11/30 patient began to feel nauseous, not feeling well, and had a slight fever which resolved with ibuprofen. Patient's noticed that she is getting more confused and not able to communicate what was going on. However, she still took all her meds. This morning patient became more altered and patient's decided to bring her to the hospital to be evaluated. Patient has an extensive psychiatric and neurologic history which includes multiple medications that she has been taking for years and lengthy hospital stay years ago needing transfer to [facility]. ER workup: vitals: blood pressure of 175/87, pulse of 109, respiratory rate of 19, temperature of 98.8- later 101.7, saturating 98% on room air. Chemistry panel was showing hyponatremia, WICHO with BUN 33 and creatinine 1.6. Blood glucose 133. Lactic acid was normal. Corrected calcium 10.6. Magnesium was 1.5. AST 55 and ALT 34. Ammonia was negative. LDH was 310. CRP was negative. BNP was 105. TSH and T4 was unremarkable. UA showed pH 8.0 proteinuria and ketones. U tox was positive for marijuana. Acetaminophen level 4.4. Head CT was negative. Imaging: CXR: negative for lobar pneumonia or pulmonary edema. CT head negative for gross hemorrhage or mass effect Neurology was consulted and I suggested to perform a lumbar puncture. Patient received 2 doses of Ativan in ER due to agitation prior to LP. Patient will be admitted for evaluation of acute encephalopathy/akathisia. cc:: cc: Chris Meng DO Review of Systems Review of Systems ROS Unobtainable: unobtainable due to mental status Past Medical History Past Medical History NEUROLOGIC: Positive Neurological Disorders and Migraine; Negative Seizures CARDIAC: Positive Cardiac Disorders and Hypertension; Negative Congestive Heart Failure RESPIRATORY: Positive Asthma (MILD ALLERGY RELATED), Pneumonia and Sleep Apnea; Negative Chronic Obstructive Pulmonary Disease (COPD) GASTROINTESTINAL: Positive Gastrointestinal Disorders (LLQ ABDOMINAL PAIN), Irritable Bowel and Gastroesophageal Reflux Disease; Negative Hepatitis GENITOURINARY: Positive Genitourinary Disorders and Renal Disease REPRODUCTIVE: Positive Previous Pregnancies (x4) MUSCULOSKELETAL: Positive Musculoskeletal Disorders and Arthritis ENDOCRINE: Positive Endocrine Disorders and Hypothyroidism; Negative Diabetes Mellitus Type 1 or Diabetes Mellitus Type 2 HEMATOLOGIC: Negative Blood Disorders PSYCHO/SOCIAL: Positive Depression and Anxiety OTHER HISTORY: Positive Anesthesia Reactions (HIGH TOLERANCE FOR MEDICATIONS), Chicken Pox and Measles; Negative Hospitalization, Shingles, Falls (NO FALLS BUT SLIGHTLY UNSTEADY), Blood Transfusions, Blood Transfusion Reaction, Chemotherapy, Radiation Therapy, MRSA or Cancer Family History FAMILY HISTORY: Positive Family Cancer (MOTHER- COLON CA) Surgical History SURGICAL: Positive Joint Replacement (LEFT KNEE), Open Reduction Internal Fixation (LEFT THIGH), Hysterectomy and Section; Negative Cardiac Surgery, Endocrine Surgery or Abdominal Surgery Social History SMOKING STATUS: Former smoker Meds Home Medications and Allergies Home Medications ?Medication ?Instructions ?Recorded ?Confirmed ?Type divalproex 500 mg tablet,delayed 1,500 mg PO HS #0 tabs 05/29/14 12/03/24 History release (Depakote) pregabalin 75 mg capsule (Lyrica) 150 mg PO QPM #0 caps 06/25/15 12/03/24 History levothyroxine 50 mcg tablet 50 mcg PO QAM 06/21/18 12/03/24 History omeprazole 40 mg capsule,delayed 40 mg PO QDAY 06/21/18 12/03/24 History release dicyclomine 10 mg capsule 10 mg PO BID 07/12/21 12/03/24 History meclizine 12.5 mg tablet 12.5 mg PO Q12HR PRN Nausea 07/12/21 12/03/24 History nebivolol 5 mg tablet (Bystolic) 2.5 mg PO QDAY 07/12/21 12/03/24 History venlafaxine 150 mg 150 mg PO QAM 07/12/21 12/03/24 History capsule,extended release 24 hr venlafaxine 75 mg capsule,extended 75 mg PO QAM 07/12/21 12/03/24 History release 24 hr atogepant 60 mg tablet (Qulipta) 60 mg PO QAM 08/01/24 12/03/24 History loratadine 10 mg tablet 10 mg PO QDAY 08/01/24 12/03/24 History trazodone 50 mg tablet 50 mg PO HS 08/01/24 12/03/24 History ubrogepant 100 mg tablet (Ubrelvy) 100 mg PO QDAY 08/01/24 12/03/24 History albuterol sulfate 2.5 mg/3 mL 2.5 mg inhalation Q6H PRN 12/03/24 12/03/24 History (0.083 %) solution for nebulization Shortness Of Breath Or Wheezing bupropion HCl 150 mg 24 hr tablet, 150 mg PO QAM 12/03/24 12/03/24 History extended release divalproex 500 mg tablet,delayed 1,500 mg PO HS 12/03/24 12/03/24 History release (Depakote) donepezil 10 mg tablet 10 mg PO QPM 12/03/24 12/03/24 History fluticasone fur. 100 mcg-umeclid 1 inh inhalation QDAY PRN 12/03/24 12/03/24 History 62.5 mcg-vilant 25 mcg Shortness Of Breath Or Wheezing inhalat.powder (Trelegy Ellipta) hydroxychloroquine 200 mg tablet 200 mg PO QDAY 12/03/24 12/03/24 History hydroxyzine pamoate 50 mg capsule 100 mg PO HS 12/03/24 12/03/24 History memantine 10 mg tablet 10 mg PO BID 12/03/24 12/03/24 History montelukast 10 mg tablet 10 mg PO QDAY 12/03/24 12/03/24 History hmdapkog-gcig-erbx 8 mg-folic 400 1 tab PO QDAY 12/03/24 12/03/24 History mcg-K 50 mcg-lutein 300 mcg tablet (Multivitamin Women 50 Plus) tizanidine 4 mg tablet 4 mg PO QPM 12/03/24 12/03/24 History trospium 60 mg capsule,extended 60 mg PO QAM 12/03/24 12/03/24 History release 24 hr ubrogepant 100 mg tablet (Ubrelvy) 100 mg PO QDAY PRN Migraine 12/03/24 12/03/24 History Headache vit A 7,160 unit-vit C 113 mg-vit 2 tab PO QAM 12/03/24 12/03/24 History E 100 dipw-aoeu-chjhcb tablet vitamin B complex 1 tab PO QDAY 12/03/24 12/03/24 History Allergies Allergy/AdvReac Type Severity Reaction Status Date / Time Sulfa (Sulfonamide Allergy Severe HIVES Verified 08/01/24 12:19 Antibiotics) Exam - Neurology Vital Signs Temp Pulse Resp BP Pulse Ox O2 Del Method 100.3 F 90 18 130/85 H 96 Room Air 12/03/24 20:15 12/03/24 20:15 12/03/24 20:15 12/03/24 20:15 12/03/24 20:15 12/03/24 20:15 Narrative Exam GENERAL APPEARANCE: Well-developed, emaciated white female in acute distress. HEENT: Normocephalic, atraumatic, extraocular movements intact. Pupils: Dilated, equal reacting to light CARDIOVASULAR: Heart: S1, S2 heard, regular without S3-S4 or murmur no rubs or gallops. LUNGS/CHEST: Clear to auscultation bilaterally. No rails, rhonchi, or wheezing. Normal inspection. ABDOMEN: Soft, nontender, with normal bowel sounds. No pulsatile masses. No rebound, rigidity, or guarding. Normal inspection and palpation. EXTREMITIES: Normal inspection and palpation. No edema, clubbing or cyanosis. SKIN: Warm and dry without rashes. Normal inspection. MUSCULOSKELETAL: No cervical, thoracic, lumbar or midline bony tenderness. Normal inspection. NEURO: She is lethargic but arousable, restless, hard to stay still, constantly moving both upper and lower extremities try to be comfortable. Rest of the exam: Cannot be tested. no signs of meningeal irritation noted. PSYCHIATRIC: Akathisia+, limited exam. Results Labs 12/04/24 04:45 12/03/24 11:20 Labs: Short CBC 12/03/24 Range/Units 11:20 WBC 12.4 H (3.6-11.0) Thou/mm3 Hgb 11.5 L (12.0-16.0) g/dL Hct 32.1 L (36.0-46.0) % Plt Count 240 (140-440) Thou/mm3 BMP 12/03/24 11:20 Sodium 135 L Potassium 3.5 Chloride 101 Carbon Dioxide 21.5 BUN 33 H Creatinine 1.6 H Glucose 133 H Calcium 10.6 Cardiac Enzymes 12/03/24 12/03/24 Range/Units 11:20 17:24 Total Creatine Kinase 1096 H (34-171) U/L Troponin I 0.024 (0.0-0.045) ng/mL Liver Function 12/03/24 Range/Units 11:20 Total Bilirubin 0.8 (0.3-1.2) mg/dL AST 55 H (0-34) U/L ALT 34 (10-49) U/L Alkaline Phosphatase 43 L (46-116) U/L Albumin 4.5 (3.4-4.8) gm/dL Urine 12/03/24 Range/Units 13:16 Urine Color Yellow (Lt Yel-Yel) Urine Clarity Clear (Clear/Hazy) Urine pH 8.0 H (5.0-7.0) Ur Specific [place] 1.019 (1.001-1.035) Urine Protein 1+ A (Neg - Trace) Urine Glucose (UA) Negative (Negative) ABG Interpretation ABG results: 12/03/24 13:35 VBG pH 7.57 VBG pCO2 19 L VBG pO2 132 H VBG Base Excess -3 Assessment & Plan Assessment and plan (1) Altered mental status: Status: Acute Assessment and plan: With subacute/tardiveakathisia Plan to do lumbar puncture and MRI brain with sedation to stay still Continue home meds: Depakote 1000 mg twice daily IV, pregabalin 75 mg twice daily and venlafaxine 75 mg twice daily. Will try clonazepam 1 mg twice a day and olanzapine 2.5 to 5 mg as needed\ (2) Stage 3 chronic kidney disease: Status: Chronic Assessment and plan: Continue to monitor kidney function closely Avoiding nephrotoxic drugs (3) Hypertension: Status: Acute Assessment and plan: Will add propranolol 20 mg twice daily Consider adding clonidine if needed for dual benefits up to 0.15 mg daily
--- NOTE | 2024-12-03 23:09 | PD.EVENT ---
Documentation for date of: 12/03/24 Date of procedure: 12/03/24 Pre-op diagnosis: Altered mental status Post-op diagnosis: Same Consent signed by: Spouse Position: lateral decubitus Prep: betadine Anesthesia: 1 % Lidocaine Sedation: other (Ativan 2 mg) Needle size: 22ga Needle length: 3.5 Interspace: L3-4 Number of attempts: 2 Opening pressure: not done Fluids mLs collected: 7 Fluid description: clear Complications: No Patient tolerance: Good Comments: Patient was restless throughout the procedure despite being held by staff and her Procedure performed by: Yadiel Villareal Condition: Stable Disposition: no change
[2024-12-04] VITALS (9 sets, daily range): BP systolic 138–171; BP diastolic 74–91; PULSE 85–100; RESP 16–25; TEMP 36.1–37.7; O2SAT 96–99
--- NOTE | 2024-12-04 02:08 | RESP.EEG ---
PT UNABLE TO HOLD STILL FOR EEG. PT WAS ALSO NOT ABLE TO GO TO CT DUE TO NON-COMPLIANT AND UNABLE TO HOLD STILL. RT WILL ATTEMPT TO DO EEG AT ANOTHER TIME.
[2024-12-04 05:27] LABS: Basophils % (Auto) 0 % (0-2.5); Eosinophils % (Auto) 0 % (0-10); Hematocrit 26.8 % (36.0-46.0); Hemoglobin 9.4 g/dL (12.0-16.0); Immature Granulocytes % (Auto) 0 % (0-0); Immature Granulocytes Auto 0.04 Thou/mm3 (0.00-0.00); Lymphocytes # (Auto) 1.8 Thou/mm3 (1.0-4.8); Lymphocytes % (Auto) 17 % (10-50); Mean Corpuscular HGB Conc 35.1 g/dl (31.0-37.0); Mean Corpuscular Hemoglobin 30.9 pg (25.0-35.0); Mean Corpuscular Volume 88 fL (80-100); Monocytes # (Auto) 1.3 Thou/mm3 (0.0-0.8); Monocytes % (Auto) 12 % (0-12); Neutrophils # (Auto) 7.6 Thou/mm3 (1.8-7.7); Neutrophils % (Auto) 71 % (37-80); Nucleated Red Blood Cell % 0 /100 WBC (0); Platelet Count 198 Thou/mm3 (140-440); RDW Standard Deviation 44.2 fL (36.4-46.3); Red Blood Count 3.04 Miln/mm3 (4.00-5.20); White Blood Count 10.8 Thou/mm3 (3.6-11.0)
[2024-12-04 06:48] LABS: Alanine Aminotransferase 38 U/L (10-49); Albumin, Serum 3.6 gm/dL (3.4-4.8); Albumin/Globulin Ratio 1.4 (1.2-2.2); Alkaline Phosphatase 35 U/L (46-116); Anion Gap 8 (7-16); Aspartate Amino Transferase 77 U/L (0-34); BUN/Creatinine Ratio 21 Ratio (12-20); Bilirubin,Total 0.6 mg/dL (0.3-1.2); Blood Urea Nitrogen 21 mg/dL (9-23); Calcium 8.8 mg/dL (8.3-10.6); Calcium (Corrected) 9.1 mg/dL (8.5-10.1); Carbon Dioxide 20.2 mMol/L (20.0-31.0); Chloride 112 mMol/L (98-107); Estimated Creatinine Clearance 44.3 mL/min (>60); Globulin 2.5 gm/dL (2.3-3.5); Glucose 66 mg/dL (74-106); Magnesium 2.4 mg/dL (1.6-2.6); Osmolality,Calculated 280 (275-295); Potassium 3.4 mMol/L (3.4-5.1); Sodium 140 mMol/L (136-145); Total Protein 6.1 gm/dL (5.7-8.2); eGFR > 60 See Note
[2024-12-04 06:55] LABS: CSF Cell Count Tube # Tube # 4; CSF, Appearance Clear (Clear)
[2024-12-04 07:00] LABS: CSF Gram Stain Alert Gram Stain Completed
[2024-12-04] MEDS: DEXTROSE 50%-WATER INJ 50 ML SYRINGE IV (09:22)
[2024-12-04] MEDS: SODIUM CHLORIDE 0.9% 1000 ML 1,000 ML 40 ML IV (09:22)
[2024-12-04] MEDS: PREGABALIN 75 MG CAPSULE PO ×2 (09:23→20:46)
[2024-12-04] MEDS: VENLAFAXINE 37.5 MG TABLET 75 MG PO ×2 (09:23→20:46)
[2024-12-04] MEDS: VALPROATE SOD INJ 500 MG in SODIUM CHLORIDE 0.9% 50 ML 55 MG IV ×3 (09:24→23:47)
--- NOTE | 2024-12-04 09:25 | PCS.ST ---
Swallowing evaluation completed. No dysphagia. Regular diet.
[2024-12-04] MEDS: clonazePAM 0.5 MG TABLET 1 MG PO ×2 (09:28→20:46)
[2024-12-04] MEDS: POTASSIUM CHL 10 mEq IVPB 10 MEQ/100 ML BAG 100 MEQ IV ×2 (09:33→13:47)
--- NOTE | 2024-12-04 13:07 | PC.NURSE ---
spoke with doctor about CT scans- they said hold off for now, they think this is medication related.
[2024-12-04 14:17] LABS: Cocci Serology, IgM Negative (Negative)
--- NOTE | 2024-12-04 15:05 | ESPR_ITS ---
<Statement entered by Dwayne Gentile MD - 12/04/24 16:09> Patient was seen and examined at the bedside this morning. Patient was more alert and oriented and was able to communicate and talk to us. Patient's was also present at the bedside. Neurology stated that patient might have subacute tardive akathisia therefore the recommended to start Depakote 1 g IV twice daily, pregabalin 75 mg twice daily, venlafaxine, clonazepam 1 mg twice daily scheduled and olanzapine as needed. We are currently waiting on EEG and MRI brain without contrast to evaluate further. Lisinopril was added for blood pressure management. Will likely add propranolol recommended by neurologist tomorrow morning if blood pressure remains elevated. Potassium was repleted. Kidney functions were stable. Blood glucose was 66 this morning therefore D5 NS was started given patient was NPO. Will keep hypoglycemia protocol in place. Currently holding on CT of lumbar spine given less likely suspicious for epidural abscess. All labs and orders were reviewed. I saw and examined the patient, and I agree with current management stated by Dr Indra MD,PGY1. Plan of care was discussed with the attending physician and resident physician. Disclaimer: Despite multiple revisions, due to the dictation software being used, the document bellow may not be free of grammatical errors including phonetic/typographic errors. However, this does not deter from our commitment to providing health care in the patient's best interest in mind. Dr. Seferino MD, PGY 2 Documentation for date of: 12/04/24 Subjective Subjective Interval history: 12/04: No acute events overnight. Hypertensive this morning on exam 160/85. Rest of vital signs stable. Afebrile. White count decreasing 10.8 from 12.4. Hemoglobin decreased 9.4 from 11.5, likely dilutional, will continue to trend. Electrolytes significant for potassium 3.4, repleted, glucose of 66, amp of D50 given. C-reactive protein negative at 0.7. Pro-Nader negative at 0.08. Hepatitis panel negative, HIV and HIV-[address] Villareal examined patient overnight, perform lumbar puncture, Gram stain of spinal fluid negative. Spoke to Dr. Villareal this a.m. She states that this is very likely medication induced subacute tardive dyskinesia. Patient examined this a.m., mentating much better. No nonpurposeful movements, no shivering, alert and oriented x [address] time and purpose. Patient is pleasant, responding and mentating well. Denies any symptoms upon examination. Dr. Villareal suggested starting on medication regimen, see plan for details. Also suggested getting MRI and EEG for further assessment and evaluation. Exam Vital Signs Temp Pulse Resp BP Pulse Ox O2 Del Method 98.5 F 93 19 158/88 H 98 Room Air 12/04/24 14:07 12/04/24 14:07 12/04/24 14:07 12/04/24 14:07 12/04/24 14:07 12/04/24 14:07 Narrative Exam GENERAL: Patient is pleasant, in no acute distress. Alert and oriented to person place time and purpose NEURO: Cranial nerves II to XII intact, motor strength 5 out of 5 bilaterally upper and lower extremities. Sensation intact. HEENT: Pupils 4 mm equal round and reactive to light CARDIO: No chest pain on palpation. Heart RRR, no obvious murmurs PULM: No noted coughing/dyspnea. Lungs CTA B/L, no R/W/R GI: Abdomen soft, nondistended, no pain on palpation. BSx4. No rebound tenderness URO/RECREATION SUPERVISOR:: No further abnormalities noted. Yu catheter SKIN/MSK/EXT: No wounds/rashes/edema/amputations, no pain on palpation. Pedal pulses present B/L Objective Labs 12/04/24 04:45 12/04/24 04:45 Labs: Laboratory Results - last 24 hr 12/03/24 12/03/24 12/03/24 11:20 13:35 17:24 WBC RBC Hgb Hct MCV MCH MCHC RDW Std Deviation Plt Count Neut % (Auto) Lymph % (Auto) [place] % (Auto) Eos % (Auto) Baso % (Auto) Neut # (Auto) Lymph # (Auto) [place] # (Auto) Eos # (Auto) Baso # (Auto) Immature Gran # (Auto) Absolute Nucleated RBC Immature Gran % Nucleated RBC % ESR 103 H Sodium Potassium Chloride Carbon Dioxide Anion Gap BUN Creatinine Estim Creat Clear Calc eGFR BUN/Creatinine Ratio Glucose Calculated Osmolality Calcium Corrected Calcium Phosphorus Magnesium Ferritin 188 Total Bilirubin AST ALT Alkaline Phosphatase Total Creatine Kinase 1096 H C-Reactive Prot, Quant 0.7 Total Protein Albumin Globulin Albumin/Globulin Ratio TSH 1.39 Free T4 1.33 CSF Appearance CSF Color CSF WBC CSF RBC CSF Cell Count Tube # CSF Mononuclear WBCs CSF Polynuclear WBCs CSF Glucose CSF Total Protein Salicylates < 3.0 Acetaminophen 4.4 L Coccidioides IgM Ab Negative Hepatitis A IgM Ab Non Reactive Hep Bs Antigen Non Reactive Hep B Core IgM Ab Non Reactive Hepatitis C Antibody Non Reactive HIV 1&2 Antibody Rapid Non-Reactive Misc Test Result 12/03/24 12/03/24 12/04/24 20:13 23:00 04:45 WBC 10.8 RBC 3.04 L Hgb 9.4 L D Hct 26.8 L MCV 88 MCH 30.9 MCHC 35.1 RDW Std Deviation 44.2 Plt Count 198 D Neut % (Auto) 71 Lymph % (Auto) 17 [place] % (Auto) 12 Eos % (Auto) 0 Baso % (Auto) 0 Neut # (Auto) 7.6 Lymph # (Auto) 1.8 [place] # (Auto) 1.3 H Eos # (Auto) 0.0 Baso # (Auto) 0.0 Immature Gran # (Auto) 0.04 H Absolute Nucleated RBC 0.00 Immature Gran % 0 Nucleated RBC % 0 ESR Sodium 140 Potassium 3.4 Chloride 112 H Carbon Dioxide 20.2 Anion Gap 8 BUN 21 Creatinine 1.0 D Estim Creat Clear Calc 44.3 L eGFR > 60 BUN/Creatinine Ratio 21 H Glucose 66 L D Calculated Osmolality 280 Calcium 8.8 D Corrected Calcium 9.1 D Phosphorus 3.0 Magnesium 2.4 Ferritin Total Bilirubin 0.6 AST 77 H ALT 38 Alkaline Phosphatase 35 L Total Creatine Kinase C-Reactive Prot, Quant Total Protein 6.1 Albumin 3.6 D Globulin 2.5 Albumin/Globulin Ratio 1.4 TSH 1.20 Free T4 CSF Appearance Clear CSF Color Colorless CSF WBC 2 CSF RBC 0 CSF Cell Count Tube # Tube # 4 CSF Mononuclear WBCs 50.0 CSF Polynuclear WBCs 50.0 CSF Glucose 64 CSF Total Protein 28 Salicylates Acetaminophen Coccidioides IgM Ab Hepatitis A IgM Ab Hep Bs Antigen Hep B Core IgM Ab Hepatitis C Antibody HIV 1&2 Antibody Rapid Misc Test Result Cancelled ABG Interpretation ABG results: 12/03/24 13:35 VBG pH 7.57 VBG pCO2 19 L VBG pO2 132 H VBG Base Excess -3 Quality Measures Quality Measures none Advance care planning discussed with:: patient and spouse Assessment & Plan Assessment Current Active Medications: Generic Name Dose Route Start Last Admin Trade Name Freq PRN Reason Stop Dose Admin Clonazepam 1 mg 12/04/24 09:00 12/04/24 09:28 Clonazepam 0.5 Mg Tablet PO 12/09/24 08:59 1 mg BID JOHANNA Administration Valproic Acid 500 mg/ Sodium 55 mls @ 55 mls/hr 12/04/24 09:00 12/04/24 10:41 Chloride IV 01/03/25 08:59 Infused Q6HR JOHANNA Infusion Sodium Chloride 1,000 mls @ 40 mls/hr 12/04/24 08:23 12/04/24 09:22 Ns IV 01/03/25 08:22 40 mls/hr .Q24H JOHANNA Administration Lisinopril 5 mg 12/04/24 12:15 12/04/24 12:37 Lisinopril 2.5 Mg Tablet PO 01/03/25 12:14 Not Given QDAY JOHANNA Lorazepam 2 mg 12/03/24 18:52 12/03/24 19:37 Lorazepam 2 Mg/Ml Vial IVP 12/08/24 18:51 2 mg Q30MIN PRN Administration SEIZURES Olanzapine 5 mg 12/04/24 08:19 Olanzapine 5 Mg Tablet PO 01/03/25 08:59 BID PRN AGITATION (SEVERE) Ondansetron HCl 4 mg 12/03/24 17:05 Ondansetron Inj 2 Mg/Ml Inj 2 Ml IV 01/02/25 17:04 Q6H PRN NAUSEA OR VOMITING Protocol Pregabalin 75 mg 12/04/24 09:00 12/04/24 09:23 Pregabalin 75 Mg Capsule PO 01/03/25 08:59 75 mg BID JOHANNA Administration Venlafaxine HCl 75 mg 12/04/24 09:00 12/04/24 09:23 Venlafaxine 37.5 Mg Tablet PO 01/03/25 08:59 75 mg BID JOHANNA Administration Plan #Subacute Tardive Dyskinesia #Serotonin Syndrome #Acute encephalopathy, likely toxic versus metabolic #Encephalopathy secondary to bacterial or viral cause possible- appears to be ruled out #Sepsis of Unknown source- appears to be ruled out Pt presented with Fever, Tachycardia, elevated white count, hypertension, normal respiratory rate, altered mental status. Patient presented confused in the emergency room, AO x [address]. Patient recently has had spinal cord stimulator implanted on 11/25 and subsequently removed on 11/29 due to bladder incontinence. Symptoms began Monday. See above history. Patient has a history of major depressive disorder, generalized anxiety disorder, chronic pain and takes venlafaxine, Depakote, bupropion, memantine, donepezil, tizanidine trazodone, pregabalin at home UA appears negative CT abdomen pelvis does not appear appropriate this time CT lumbar spine with contrast does not appear appropriate at this time ESR 103, CRP 0.7, Pro-Nader 0.08 Hepatitis panel negative, HIV 1/ initially nonreactive Cocci pending ?Dr. Villareal consulted, performed lumbar puncture. Initial Gram stain negative. Does not suspect to be infectious cause. Antibiotics do not appear to be necessary. Appreciate further recommendations. -Per neurology starting: -Depakote 1000 mg twice daily -Pregabalin 75 mg twice daily -Venlafaxine 75 mg twice daily -Clonazepam 1 mg twice daily -Olanzapine 5 mg as needed for agitation -Pending EEG, brain MRI Seizure precautions in place Aspiration precautions in place Neurochecks every 4 hours #Possible Seizure Disorder Pt with possible seizure activity - Ativan 2 mg Q30min for breakthrough seizures - CK ordered, pending - Pending MRI brain - Pending EEG #History of major depressive disorder #History of General Anxiety disorder #Chronic pain syndrome #Neuropathic pain #History of migraines #History of lupus #Dementia Extensive history of major depressive disorder and general anxiety disorder for many years. No recent medication changes. Extensive history of chronic pain, possibly neuropathic Diagnosed with lupus 6 months ago, started hydroxychloroquine shortly after Recently diagnosed with dementia with Dr. Villareal, started on memantine and donepezil Patient has a home medication list that includes trazodone, pregabalin, Ubrelvy, Qulipta, memantine, donepezil, hydroxychloroquine venlafaxine, bupropion, Depakote -Depakote 1000 mg twice daily -Pregabalin 75 mg twice daily -Venlafaxine 75 mg twice daily -Clonazepam 1 mg twice daily -Olanzapine 5 mg as needed for agitation #History of chronic kidney disease stage III- improving Patient's states that she has a history of CKD stage III 3B. Patient's baseline creatinine appears to be 1.4 BUN 33, creatinine 1.6 on presentation 12/04: Fxn appears improving -Pt is on regular diet, stopping maintenance fluids -Reevaluate morning labs ?Avoid nephrotoxic agents #History of hypothyroidism Restarting home levothyroxine 50 mcg QAM #Urinary incontinence Patient's stated that shortly after spinal cord stimulator was implanted patient had bladder incontinence -Yu catheter -Strict I and O's Diet: NPO now GI: Pantoprazole DVT: SCDs, Heparin Yu: Yu catheter Lines: Peripheral Dispo: Telemetry Med Rec: Pending Code: Conditional code: Patient accepts compressions, denies intubation per at bedside- DNI Hospitalization for observation, work-up, & management of acute encephalopathy, toxic versus metabolic Patient was seen, plan was discussed with attending Dr. Meng and senior residents on service Indra Villalobos D.O. PGY1 Anesthesiology Attending Provider Attestation/Addendum At that time I have discussed and was present for the essential components of the history, physical examination, diagnosis, and treatment plan with the resident. I agree with the patient's care as documented by the resident and amended herein by me. Elijah Meng, DO. Patient seen and evaluated this AM. Patient subsequently admitted for tardive dyskinesia. Patient much improved today much calmer, labs largely unremarkable, kidney function has improved. MRI brain and EEG pending. Per neurology recommendations patient presently on clonazepam 1 mg twice daily, olanzapine 5 mg p.o. twice daily as needed, Lyrica 75 mg p.o. twice daily, valproic acid and venlafaxine 75 mg p.o. twice daily. Will continue to follow with serologies and fluid studies from LP performed last night as well as EEG results. Although this document has been carefully reviewed, there may still be some phonetic and other typographical errors. These errors are purely grammatical due to imperfections in the software program and should not be construed in any way to compromise the substance of the patient's medical care during this visit.
--- NOTE | 2024-12-04 15:40 | RESP.EEG ---
EEG unable to be completed due to pt not staying still
[2024-12-04] MEDS: Lisinopril 2.5 MG TABLET 5 MG PO (16:24)
[2024-12-04] MEDS: HEPARIN SOD INJ 5000 UNIT/ML VIAL SC (20:47)
--- NOTE | 2024-12-04 23:47 | ESPR_ITS ---
Documentation for date of: 12/04/24 Subjective Subjective Interval history: Patient was seen in telemetry with her at the bedside. No more abnormal involuntary movements/akathisia/restlessness noted. She is able to tolerate oral diet well she slept well today for several hours. Exam - Neurology Vital Signs Temp Pulse Resp BP Pulse Ox O2 Del Method 99.8 F 94 25 H 148/74 H 97 Room Air 12/04/24 20:00 12/04/24 20:00 12/04/24 20:00 12/04/24 20:00 12/04/24 20:00 12/04/24 20:00 Narrative Exam GENERAL APPEARANCE: Well hydrated, well-nourished in no acute distress. HEENT: Normocephalic, atraumatic, extraocular movements intact. Pupils: Equal reacting to light and accommodation NECK: Supple, no JVD or bruits. CARDIOVASULAR: Heart: S1, S2 heard, regular without S3-S4 or murmur no rubs or gallops. LUNGS/CHEST: Clear to auscultation bilaterally. No rails, rhonchi, or wheezing. Normal inspection. ABDOMEN: Soft, nontender, with normal bowel sounds. No pulsatile masses. No rebound, rigidity, or guarding. Normal inspection and palpation. EXTREMITIES: Normal inspection and palpation. No edema, clubbing or cyanosis. SKIN: Warm and dry without rashes. Normal inspection. MUSCULOSKELETAL: No cervical, thoracic, lumbar or midline bony tenderness. Normal inspection. NEURO: Alert, awake and oriented x3. Cranial nerves: II through XII grossly intact. Speech and language: Normal with no dysarthria or dysphasia. Motor system: Tone and bulk: Normal: Strength: 5 out of 5 in all 4 extremities; No pronator drift noted. Deep tendon reflexes: 2+ bilaterally symmetrical. Plantar reflex: Downgoing bilaterally. Sensory system: Intact to all modalities of sensation bilaterally. Coordination: Intact to oolvhc-adbz-bymvk and yvai-jvoj-xlcc test bilaterally. No ataxia, no dysmetria, or dysdiadochokinesia noted. No intention tremors noted. Gait: Not tested. No signs of meningeal irritation noted. PSYCHIATRIC: Normal mood and affect. Objective Labs 12/04/24 04:45 12/04/24 04:45 Labs: Laboratory Results - last 24 hr 12/03/24 12/03/24 12/03/24 17:24 20:13 23:00 WBC RBC Hgb Hct MCV MCH MCHC RDW Std Deviation Plt Count Neut % (Auto) Lymph % (Auto) [place] % (Auto) Eos % (Auto) Baso % (Auto) Neut # (Auto) Lymph # (Auto) [place] # (Auto) Eos # (Auto) Baso # (Auto) Immature Gran # (Auto) Absolute Nucleated RBC Immature Gran % Nucleated RBC % Sodium Potassium Chloride Carbon Dioxide Anion Gap BUN Creatinine Estim Creat Clear Calc eGFR BUN/Creatinine Ratio Glucose Calculated Osmolality Calcium Corrected Calcium Phosphorus Magnesium Total Bilirubin AST ALT Alkaline Phosphatase Total Protein Albumin Globulin Albumin/Globulin Ratio TSH CSF Appearance Clear CSF Cell Count Tube # Tube # 4 CSF Polynuclear WBCs 50.0 Coccidioides IgM Ab Negative Misc Test Result Cancelled 12/04/24 04:45 WBC 10.8 RBC 3.04 L Hgb 9.4 L D Hct 26.8 L MCV 88 MCH 30.9 MCHC 35.1 RDW Std Deviation 44.2 Plt Count 198 D Neut % (Auto) 71 Lymph % (Auto) 17 [place] % (Auto) 12 Eos % (Auto) 0 Baso % (Auto) 0 Neut # (Auto) 7.6 Lymph # (Auto) 1.8 [place] # (Auto) 1.3 H Eos # (Auto) 0.0 Baso # (Auto) 0.0 Immature Gran # (Auto) 0.04 H Absolute Nucleated RBC 0.00 Immature Gran % 0 Nucleated RBC % 0 Sodium 140 Potassium 3.4 Chloride 112 H Carbon Dioxide 20.2 Anion Gap 8 BUN 21 Creatinine 1.0 D Estim Creat Clear Calc 44.3 L eGFR > 60 BUN/Creatinine Ratio 21 H Glucose 66 L D Calculated Osmolality 280 Calcium 8.8 D Corrected Calcium 9.1 D Phosphorus 3.0 Magnesium 2.4 Total Bilirubin 0.6 AST 77 H ALT 38 Alkaline Phosphatase 35 L Total Protein 6.1 Albumin 3.6 D Globulin 2.5 Albumin/Globulin Ratio 1.4 TSH 1.20 CSF Appearance CSF Cell Count Tube # CSF Polynuclear WBCs Coccidioides IgM Ab Misc Test Result ABG Interpretation ABG results: 12/03/24 13:35 VBG pH 7.57 VBG pCO2 19 L VBG pO2 132 H VBG Base Excess -3 Assessment & Plan Assessment and plan (1) Altered mental status: Status: Acute Assessment and plan: With subacute/tardiveakathisia: This CSF analysis: Negative for infection/inflammation Continue home meds: Depakote 1000 mg twice daily IV, pregabalin 75 mg twice daily and venlafaxine 75 mg twice daily. Will try clonazepam 1 mg twice a day and olanzapine 2.5 to 5 mg as needed\ (2) Stage 3 chronic kidney disease: Status: Chronic Assessment and plan: Continue to monitor kidney function closely Avoiding nephrotoxic drugs (3) Hypertension: Status: Acute Assessment and plan: Will add propranolol 20 mg twice daily Consider adding clonidine if needed for dual benefits up to 0.15 mg daily
[2024-12-05] VITALS (9 sets, daily range): BP systolic 108–146; BP diastolic 71–89; PULSE 74–95; RESP 14–96; TEMP 36.1–37.1; O2SAT 94–97; BMI 17.1
--- NOTE | 2024-12-05 | XR_ITS ---
Examination: MRI brain without intravenous contrast. Date and time of exam: December 05, 2024 1843 hrs. Comparison July 14, 2022 Indications: Altered mental status confusion difficulty speaking 5 days Technique: Multiple axial and sagittal images of the brain obtained. Siemens high-resolution 1.5 [place] short bore scanners utilized. Limited images Findings: Enlargement of the sella turcica is not present. The optic chiasm and infundibular are not remarkable. Prepontine and interpeduncular cisterns are not enlarged. There is no localized enlargement of the medulla or del. Fourth ventricle and cerebellar tonsils appear normal in position. No subacute area of hemorrhage density is seen. Mass in the cerebellopontine angle region is not evident. Globes symmetrical. Orbital musculature including medial lateral rectus muscles do not exhibit abnormality. Diffusion-weighted images demonstrate no focus of restricted diffusion. Increased white matter signal not significant Mass effect upon the ventricular system is not identified. Impression: Limited study Negative for acute hemorrhage mass effect or midline shift No acute infarct
[2024-12-05] MEDS: LEVOTHYROXINE SODIUM 25 MCG TABLET 50 MCG PO (05:35)
[2024-12-05] MEDS: VALPROATE SOD INJ 500 MG in SODIUM CHLORIDE 0.9% 50 ML 55 MG IV ×4 (05:35→23:54)
[2024-12-05 06:06] LABS: Basophils % (Auto) 0 % (0-2.5); Eosinophils # (Auto) 0.1 Thou/mm3 (0.0-0.5); Eosinophils % (Auto) 1 % (0-10); Hematocrit 28.1 % (36.0-46.0); Hemoglobin 9.6 g/dL (12.0-16.0); Immature Granulocytes % (Auto) 0 % (0-0); Immature Granulocytes Auto 0.03 Thou/mm3 (0.00-0.00); Lymphocytes # (Auto) 2.7 Thou/mm3 (1.0-4.8); Lymphocytes % (Auto) 32 % (10-50); Mean Corpuscular HGB Conc 34.2 g/dl (31.0-37.0); Mean Corpuscular Hemoglobin 30.8 pg (25.0-35.0); Mean Corpuscular Volume 90 fL (80-100); Monocytes % (Auto) 13 % (0-12); Neutrophils # (Auto) 4.4 Thou/mm3 (1.8-7.7); Neutrophils % (Auto) 54 % (37-80); Nucleated Red Blood Cell % 0 /100 WBC (0); Platelet Count 188 Thou/mm3 (140-440); RDW Standard Deviation 44.9 fL (36.4-46.3); Red Blood Count 3.12 Miln/mm3 (4.00-5.20); White Blood Count 8.3 Thou/mm3 (3.6-11.0)
[2024-12-05 06:57] LABS: Alanine Aminotransferase 40 U/L (10-49); Albumin, Serum 3.5 gm/dL (3.4-4.8); Albumin/Globulin Ratio 1.5 (1.2-2.2); Alkaline Phosphatase 38 U/L (46-116); Anion Gap 8 (7-16); Aspartate Amino Transferase 48 U/L (0-34); BUN/Creatinine Ratio 19 Ratio (12-20); Bilirubin,Total 0.6 mg/dL (0.3-1.2); Blood Urea Nitrogen 17 mg/dL (9-23); Calcium (Corrected) 9.4 mg/dL (8.5-10.1); Carbon Dioxide 22.4 mMol/L (20.0-31.0); Chloride 111 mMol/L (98-107); Creatinine (Component) 0.9 mg/dL (0.6-1.3); Estimated Creatinine Clearance 46.8 mL/min (>60); Globulin 2.4 gm/dL (2.3-3.5); Glucose 85 mg/dL (74-106); Magnesium 1.7 mg/dL (1.6-2.6); Osmolality,Calculated 281 (275-295); Phosphorous 2.2 mg/dL (2.4-5.1); Potassium 3.7 mMol/L (3.4-5.1); Sodium 141 mMol/L (136-145); Total Protein 5.9 gm/dL (5.7-8.2); eGFR > 60 See Note
[2024-12-05 08:09] LABS: Creatine Kinase 178 U/L (34-171)
[2024-12-05] MEDS: Magnesium Sulfate 4 GM Ivpb 4 GM/50 ML BAG IV (08:48)
[2024-12-05] MEDS: NAPH,KPH MBDB 1 PACKET (1.5 GM) 2 PACKET PO (08:48)
[2024-12-05] MEDS: Lisinopril 2.5 MG TABLET 5 MG PO (08:49)
[2024-12-05] MEDS: PREGABALIN 75 MG CAPSULE PO ×2 (08:49→20:33)
[2024-12-05] MEDS: HEPARIN SOD INJ 5000 UNIT/ML VIAL SC ×2 (08:49→20:33)
[2024-12-05] MEDS: clonazePAM 0.5 MG TABLET 1 MG PO ×2 (08:49→20:33)
[2024-12-05] MEDS: POTASSIUM PHOS 22.5 MMOL in SODIUM CHLORIDE 0.9% 500 ML 500 ML 82.778 MMOL IV (09:43)
[2024-12-05] MEDS: VENLAFAXINE 37.5 MG TABLET 75 MG PO ×2 (09:43→20:32)
--- NOTE | 2024-12-05 09:55 | PC.SS ---
Patient Justa Cabezas is a 69 Year old female admitted for AMS. SS contacted patient's , Tay Cabezas who reports is her surrogate decision maker [phone]. Patient lives at home with him. Prior to admission patient was alert and oriented. Patient utilizes a cane to assist with ambulation. Patient is independent with all ADL's. Choice of pharmacy is [facility]. PCP is Jadon Smtih. At time of discharge patient will return home. Patient's will provide transportation. Next of kin: , Tay Cabezas Discharge plan: Home
--- NOTE | 2024-12-05 11:15 | RESP.EEG ---
EEG COMPLETED AND READY FOR REVIEW
[2024-12-05 11:57] LABS: Cocci Serology, IgG Negative (Negative)
--- NOTE | 2024-12-05 13:13 | ESPR_ITS ---
<Statement entered by Dwayne Gentile MD - 12/05/24 13:25> Patient was seen and examined at the bedside this morning. Patient is currently AO x 3 alert and oriented. Labs showed improvement in white count. Hemoglobin stable. Kidney functions showed improvement in WICHO. Electrolytes were repleted. Neurology recommended to continue with current regimen and await on MRI brain without contrast and EEG. Metal rods in patient's lower extremity were MRI compatible confirmed. Will continue with Depakote clonidine pregabalin valproate venlafaxine as per neuro recs. PT orders to evaluate for acute rehab. Blood pressure remains stable. All labs and orders were reviewed. I saw and examined the patient, and I agree with current management stated by Dr Indra MD,PGY1. Plan of care was discussed with the attending physician and resident physician. Disclaimer: Despite multiple revisions, due to the dictation software being used, the document bellow may not be free of grammatical errors including phonetic/typographic errors. However, this does not deter from our commitment to providing health care in the patient's best interest in mind. Dr. Seferino MD, PGY 2 Documentation for date of: 12/05/24 Subjective Subjective Interval history: 12/05: No acute events overnight. Vital signs stable, CBC stable, electrolytes stable. WICHO appears resolved. Currently pending MRI, EEG read, PT eval ordered. No seizure-like activity overnight, patient mentating well AO x 4. No new symptoms. Will continue to follow. Exam Vital Signs Temp Pulse Resp BP Pulse Ox O2 Del Method 98.1 F 87 14 108/73 96 Room Air 12/05/24 12:00 12/05/24 12:12/05/24 12:12/05/24 12:12/05/24 12:12/05/24 12:00 Narrative Exam GENERAL: Patient is pleasant, in no acute distress. Alert and oriented to person place time and purpose NEURO: Cranial nerves II to XII intact, motor strength 5 out of 5 bilaterally upper and lower extremities. Sensation intact. HEENT: Pupils 4 mm equal round and reactive to light CARDIO: No chest pain on palpation. Heart RRR, no obvious murmurs PULM: No noted coughing/dyspnea. Lungs CTA B/L, no R/W/R GI: Abdomen soft, nondistended, no pain on palpation. BSx4. No rebound tenderness URO/WELL LOGGER:: No further abnormalities noted. Yu catheter SKIN/MSK/EXT: No wounds/rashes/edema/amputations, no pain on palpation. Pedal pulses present B/L Objective Labs 12/05/24 05:27 12/05/24 05:27 Labs: Laboratory Results - last 24 hr 12/03/24 12/03/24 12/05/24 17:24 23:00 05:27 WBC 8.3 RBC 3.12 L Hgb 9.6 L Hct 28.1 L MCV 90 MCH 30.8 MCHC 34.2 RDW Std Deviation 44.9 Plt Count 188 Neut % (Auto) 54 Lymph % (Auto) 32 [place] % (Auto) 13 H Eos % (Auto) 1 Baso % (Auto) 0 Neut # (Auto) 4.4 Lymph # (Auto) 2.7 [place] # (Auto) 1.0 H Eos # (Auto) 0.1 Baso # (Auto) 0.0 Immature Gran # (Auto) 0.03 H Absolute Nucleated RBC 0.00 Immature Gran % 0 Nucleated RBC % 0 Sodium 141 Potassium 3.7 Chloride 111 H Carbon Dioxide 22.4 Anion Gap 8 BUN 17 Creatinine 0.9 Estim Creat Clear Calc 46.8 L eGFR > 60 BUN/Creatinine Ratio 19 Glucose 85 Calculated Osmolality 281 Calcium 9.0 Corrected Calcium 9.4 Phosphorus 2.2 L Magnesium 1.7 Total Bilirubin 0.6 AST 48 H ALT 40 Alkaline Phosphatase 38 L Total Creatine Kinase 178 H D Total Protein 5.9 Albumin 3.5 Globulin 2.4 Albumin/Globulin Ratio 1.5 Coccidioides IgG Ab Negative Coccidioides IgM Ab Negative Misc Test Result Cancelled ABG Interpretation ABG results: 12/03/24 13:35 VBG pH 7.57 VBG pCO2 19 L VBG pO2 132 H VBG Base Excess -3 Quality Measures Quality Measures none Advance care planning discussed with:: patient and spouse Assessment & Plan Assessment Current Active Medications: Generic Name Dose Route Start Last Admin Trade Name Freq PRN Reason Stop Dose Admin Clonazepam 1 mg 12/04/24 09:00 12/05/24 08:49 Clonazepam 0.5 Mg Tablet PO 12/09/24 08:59 1 mg BID JOHANNA Administration Heparin Sodium (Porcine) 5,000 unit 12/04/24 21:00 12/05/24 08:49 Heparin Sod Inj 5000 Unit/Ml Vial SC 12/18/24 20:59 5,000 unit BID JOHANNA Administration Potassium Phosphate 22.5 mmol/ 507.5 mls @ 82.778 mls/hr 12/05/24 07:47 12/05/24 09:43 Sodium Chloride IV 12/05/24 13:54 82.778 mls/hr X1 ONE Administration Valproic Acid 500 mg/ Sodium 55 mls @ 55 mls/hr 12/05/24 12:00 Chloride IV 01/03/25 08:59 Q6HR JOHANNA Levothyroxine Sodium 50 mcg 12/05/24 06:00 12/05/24 05:35 Levothyroxine Sodium 25 Mcg Tablet PO 01/04/25 05:59 50 mcg ACBR JOHANNA Administration Lisinopril 5 mg 12/04/24 12:15 12/05/24 08:49 Lisinopril 2.5 Mg Tablet PO 01/03/25 12:14 5 mg QDAY JOHANNA Administration Lorazepam 2 mg 12/03/24 18:52 12/03/24 19:37 Lorazepam 2 Mg/Ml Vial IVP 12/08/24 18:51 2 mg Q30MIN PRN Administration SEIZURES Non-Formulary Medication 60 mg 12/05/24 13:15 Atogepant [Qulipta] PO 01/04/25 13:14 QAM JOHANNA Olanzapine 5 mg 12/04/24 08:19 Olanzapine 5 Mg Tablet PO 01/03/25 08:59 BID PRN AGITATION (SEVERE) Ondansetron HCl 4 mg 12/03/24 17:05 Ondansetron Inj 2 Mg/Ml Inj 2 Ml IV 01/02/25 17:04 Q6H PRN NAUSEA OR VOMITING Protocol Pregabalin 75 mg 12/04/24 09:00 12/05/24 08:49 Pregabalin 75 Mg Capsule PO 01/03/25 08:59 75 mg BID JOHANNA Administration Venlafaxine HCl 75 mg 12/04/24 09:00 12/05/24 09:43 Venlafaxine 37.5 Mg Tablet PO 01/03/25 08:59 75 mg BID JOHANNA Administration Plan #Subacute Tardive Dyskinesia #Serotonin Syndrome #Acute encephalopathy, likely toxic versus metabolic #Encephalopathy secondary to bacterial or viral cause possible- appears to be ruled out #Sepsis of Unknown source- appears to be ruled out Pt presented with Fever, Tachycardia, elevated white count, hypertension, normal respiratory rate, altered mental status. Patient presented confused in the emergency room, AO x [address]. Patient recently has had spinal cord stimulator implanted on 11/25 and subsequently removed on 11/29 due to bladder incontinence. Symptoms began Monday. See above history. Patient has a history of major depressive disorder, generalized anxiety disorder, chronic pain and takes venlafaxine, Depakote, bupropion, memantine, donepezil, tizanidine trazodone, pregabalin at home UA appears negative CT abdomen pelvis does not appear appropriate this time CT lumbar spine with contrast does not appear appropriate at this time ESR 103, CRP 0.7, Pro-Nader 0.08 Hepatitis panel negative, HIV 11/21 initially nonreactive Cocci negative ?Dr. Villareal consulted, performed lumbar puncture. Initial Gram stain negative. Does not suspect to be infectious cause. Antibiotics do not appear to be necessary. Appreciate further recommendations. -Per neurology starting: -Depakote 1000 mg twice daily -Pregabalin 75 mg twice daily -Venlafaxine 75 mg twice daily -Clonazepam 1 mg twice daily -Olanzapine 5 mg as needed for agitation -Pending EEG, brain MRI Seizure precautions in place Aspiration precautions in place Neurochecks every 4 hours #Possible Seizure Disorder-appears resolved Pt with possible seizure activity - Ativan 2 mg Q30min for breakthrough seizures - CK ordered, pending - Pending MRI brain - Pending EEG #History of major depressive disorder #History of General Anxiety disorder #Chronic pain syndrome #Neuropathic pain #History of migraines #History of lupus #Dementia Extensive history of major depressive disorder and general anxiety disorder for many years. No recent medication changes. Extensive history of chronic pain, possibly neuropathic Diagnosed with lupus 6 months ago, started hydroxychloroquine shortly after Recently diagnosed with dementia with Dr. Villareal, started on memantine and donepezil Patient has a home medication list that includes trazodone, pregabalin, Ubrelvy, Qulipta, memantine, donepezil, hydroxychloroquine venlafaxine, bupropion, Depakote -Depakote 1000 mg twice daily -Pregabalin 75 mg twice daily -Venlafaxine 75 mg twice daily -Clonazepam 1 mg twice daily -Olanzapine 5 mg as needed for agitation #Acute on chronic kidney injury?appears resolved #History of chronic kidney disease stage III- Patient's states that she has a history of CKD stage III 3B. Patient's baseline creatinine appears to be 1.4 BUN 33, creatinine 1.6 on presentation 12/04: Fxn appears improving 12/05: Function appears improved. BUN 17, creatinine 0.9. -Pt is on regular diet, stopping maintenance fluids -Reevaluate morning labs ?Avoid nephrotoxic agents #History of hypothyroidism Restarting home levothyroxine 50 mcg QAM #Urinary incontinence Patient's stated that shortly after spinal cord stimulator was implanted patient had bladder incontinence -Yu catheter -Strict I and O's Diet: NPO now GI: Pantoprazole DVT: SCDs, Heparin Yu: Yu catheter Lines: Peripheral Dispo: Telemetry Med Rec: Pending Code: Conditional code: Patient accepts compressions, denies intubation per at bedside- DNI Hospitalization for observation, work-up, & management of acute encephalopathy, toxic versus metabolic Patient was seen, plan was discussed with attending Dr. Alonso and senior residents on service Indra Villalobos D.O. PGY1 Anesthesiology Attending Provider Attestation/Addendum I attest that I was physically present for the evaluation, physical examination, lab and imaging review of the patient with the residents. I discussed the case with the residents and agree with the findings and plans of care as documented above. At bedside today, patient is alert and oriented x 4. Able to answer questions and follow instructions appropriately. Complains of migraine headache and requesting her medication Qulipta. Able to move all her limbs. We will continue Qulipta. Neurology following. Kidney function continue to improve. CK level downtrending. Vital signs and rest of the labs continue to be stable. Awaiting EEG and MRI results. Karlee Alonso MD
[2024-12-05] MEDS: Home Medication- Please speak with patient caregiver to have Rx brought to PHA 60 EA PO (17:00)
--- NOTE | 2024-12-05 23:52 | PD.NEUROPROG ---
Documentation for date of: 12/05/24 Subjective Subjective Interval history: Patient was seen in telemetry with her at the bedside. No more abnormal involuntary movements/akathisia/restlessness noted. She is able to tolerate oral diet well she slept well today for several hours. Exam - Neurology Vital Signs Temp Pulse Resp BP Pulse Ox O2 Del Method 97.3 F 91 20 143/89 H 96 Room Air 12/05/24 20:00 12/05/24 20:00 12/05/24 20:00 12/05/24 20:00 12/05/24 20:00 12/05/24 20:00 Narrative Exam GENERAL APPEARANCE: Well hydrated, well-nourished in no acute distress. HEENT: Normocephalic, atraumatic, extraocular movements intact. Pupils: Equal reacting to light and accommodation NECK: Supple, no JVD or bruits. CARDIOVASULAR: Heart: S1, S2 heard, regular without S3-S4 or murmur no rubs or gallops. LUNGS/CHEST: Clear to auscultation bilaterally. No rails, rhonchi, or wheezing. Normal inspection. ABDOMEN: Soft, nontender, with normal bowel sounds. No pulsatile masses. No rebound, rigidity, or guarding. Normal inspection and palpation. EXTREMITIES: Normal inspection and palpation. No edema, clubbing or cyanosis. SKIN: Warm and dry without rashes. Normal inspection. MUSCULOSKELETAL: No cervical, thoracic, lumbar or midline bony tenderness. Normal inspection. NEURO: Alert, awake and oriented x3. Cranial nerves: II through XII grossly intact. Speech and language: Normal with no dysarthria or dysphasia. Motor system: Tone and bulk: Normal: Strength: 5 out of 5 in all 4 extremities; No pronator drift noted. Deep tendon reflexes: 2+ bilaterally symmetrical. Plantar reflex: Downgoing bilaterally. Sensory system: Intact to all modalities of sensation bilaterally. Coordination: Intact to [id number] and fdqj-[id number]-[id number] test bilaterally. No ataxia, no dysmetria, or dysdiadochokinesia noted. No intention tremors noted. Gait: Not tested. No signs of meningeal irritation noted. PSYCHIATRIC: Normal mood and affect. Objective Labs 12/06/24 05:30 12/06/24 05:30 Labs: Laboratory Results - last 24 hr 12/03/24 12/03/24 12/05/24 17:24 23:00 05:27 WBC 8.3 RBC 3.12 L Hgb 9.6 L Hct 28.1 L MCV 90 MCH 30.8 MCHC 34.2 RDW Std Deviation 44.9 Plt Count 188 Neut % (Auto) 54 Lymph % (Auto) 32 [place] % (Auto) 13 H Eos % (Auto) 1 Baso % (Auto) 0 Neut # (Auto) 4.4 Lymph # (Auto) 2.7 [place] # (Auto) 1.0 H Eos # (Auto) 0.1 Baso # (Auto) 0.0 Immature Gran # (Auto) 0.03 H Absolute Nucleated RBC 0.00 Immature Gran % 0 Nucleated RBC % 0 Sodium 141 Potassium 3.7 Chloride 111 H Carbon Dioxide 22.4 Anion Gap 8 BUN 17 Creatinine 0.9 Estim Creat Clear Calc 46.8 L eGFR > 60 BUN/Creatinine Ratio 19 Glucose 85 Calculated Osmolality 281 Calcium 9.0 Corrected Calcium 9.4 Phosphorus 2.2 L Magnesium 1.7 Total Bilirubin 0.6 AST 48 H ALT 40 Alkaline Phosphatase 38 L Total Creatine Kinase 178 H D Total Protein 5.9 Albumin 3.5 Globulin 2.4 Albumin/Globulin Ratio 1.5 Coccidioides IgG Ab Negative Misc Test Result Cancelled ABG Interpretation ABG results: 12/03/24 13:35 VBG pH 7.57 VBG pCO2 19 L VBG pO2 132 H VBG Base Excess -3 Assessment & Plan Assessment and plan (1) Altered mental status: Status: Acute Assessment and plan: With subacute/tardiveakathisia: resolved CSF analysis: Negative for infection/inflammation Continue home meds: Depakote 1000 mg twice daily PO, pregabalin 75 mg twice daily and venlafaxine 75 mg twice daily. Will discontinue bupropion, clonazepam and lower the dose of hydroxyzine to 50 mg upon discharge Follow-up with EEG and MRI brain (2) Stage 3 chronic kidney disease: Status: Chronic Assessment and plan: Continue to monitor kidney function closely Avoiding nephrotoxic drugs (3) Hypertension: Status: Acute Assessment and plan: Continue with blood pressure control
[2024-12-06] VITALS (7 sets, daily range): BP systolic 107–132; BP diastolic 68–87; PULSE 83–97; RESP 19–95; TEMP 36.2–36.6; O2SAT 95–99; BMI 17.1
[2024-12-06] MEDS: LEVOTHYROXINE SODIUM 25 MCG TABLET 50 MCG PO (05:26)
[2024-12-06] MEDS: VALPROATE SOD INJ 500 MG in SODIUM CHLORIDE 0.9% 50 ML 55 MG IV ×2 (05:31→12:04)
[2024-12-06 05:51] LABS: Basophils % (Auto) 0 % (0-2.5); Eosinophils # (Auto) 0.1 Thou/mm3 (0.0-0.5); Eosinophils % (Auto) 2 % (0-10); Hematocrit 30.9 % (36.0-46.0); Hemoglobin 10.4 g/dL (12.0-16.0); Immature Granulocytes % (Auto) 0 % (0-0); Immature Granulocytes Auto 0.02 Thou/mm3 (0.00-0.00); Lymphocytes # (Auto) 2.7 Thou/mm3 (1.0-4.8); Lymphocytes % (Auto) 37 % (10-50); Mean Corpuscular HGB Conc 33.7 g/dl (31.0-37.0); Mean Corpuscular Hemoglobin 30.1 pg (25.0-35.0); Mean Corpuscular Volume 90 fL (80-100); Monocytes # (Auto) 0.7 Thou/mm3 (0.0-0.8); Monocytes % (Auto) 9 % (0-12); Neutrophils # (Auto) 3.8 Thou/mm3 (1.8-7.7); Neutrophils % (Auto) 52 % (37-80); Nucleated Red Blood Cell % 0 /100 WBC (0); Platelet Count 229 Thou/mm3 (140-440); RDW Standard Deviation 45.2 fL (36.4-46.3); Red Blood Count 3.45 Miln/mm3 (4.00-5.20); White Blood Count 7.3 Thou/mm3 (3.6-11.0)
[2024-12-06 06:33] LABS: Alanine Aminotransferase 43 U/L (10-49); Albumin, Serum 3.8 gm/dL (3.4-4.8); Albumin/Globulin Ratio 1.4 (1.2-2.2); Alkaline Phosphatase 41 U/L (46-116); Anion Gap 9 (7-16); Aspartate Amino Transferase 33 U/L (0-34); BUN/Creatinine Ratio 19 Ratio (12-20); Bilirubin,Total 0.6 mg/dL (0.3-1.2); Blood Urea Nitrogen 17 mg/dL (9-23); Calcium (Corrected) 9.2 mg/dL (8.5-10.1); Carbon Dioxide 24.4 mMol/L (20.0-31.0); Chloride 110 mMol/L (98-107); Creatinine (Component) 0.9 mg/dL (0.6-1.3); Estimated Creatinine Clearance 46.8 mL/min (>60); Globulin 2.7 gm/dL (2.3-3.5); Glucose 82 mg/dL (74-106); Osmolality,Calculated 285 (275-295); Phosphorous 2.9 mg/dL (2.4-5.1); Potassium 3.6 mMol/L (3.4-5.1); Sodium 143 mMol/L (136-145); Total Protein 6.5 gm/dL (5.7-8.2); eGFR > 60 See Note
[2024-12-06] MEDS: POTASSIUM CHLORIDE 20 mEq TABCR PO (07:45)
[2024-12-06] MEDS: PREGABALIN 75 MG CAPSULE PO (08:25)
[2024-12-06] MEDS: clonazePAM 0.5 MG TABLET 1 MG PO (08:25)
[2024-12-06] MEDS: VENLAFAXINE 37.5 MG TABLET 75 MG PO (08:26)
[2024-12-06] MEDS: Lisinopril 2.5 MG TABLET 5 MG PO (08:26)
[2024-12-06] MEDS: HEPARIN SOD INJ 5000 UNIT/ML VIAL SC (08:28)
[2024-12-06] MEDS: QULIPTA 60 MG PO (08:55)
--- NOTE | 2024-12-06 09:14 | PC.SS ---
SS follow up note; EEG Results pending.
--- NOTE | 2024-12-06 14:02 | ESDS_ITS ---
<Statement entered by Dwayne Gentile MD - 12/06/24 14:13> I saw and examined the patient, and I agree with current management stated by Dr Krishna MD,PGY1. Plan of care was discussed with the attending physician and resident physician. Disclaimer: Despite multiple revisions, due to the dictation software being used, the document bellow may not be free of grammatical errors including phonetic/typographic errors. However, this does not deter from our commitment to providing health care in the patient's best interest in mind. Dr. Seferino MD, PGY 2 Planned Discharge Date 12/06/24 DS: Providers Provider Date of admission: 12/03/24 17:00 Primary care physician: Jadon Smith MD Admitting Provider: Chris Meng DO Attending Provider on Admission: Karlee Alonso MD Consults: 12/03/24 16:57 Consult to Neurology / Tele-Neurology Stat Comment: Consulting Provider: Yadiel Villareal 12/04/24 08:32 Referral Speech Therapy Stat Comment: 12/05/24 09:51 Referral Physical Therapy Routine Comment: Physician Instructions: Attending Provider on DC: Madisyn Keller MD Discharging Provider: Madisyn Keller MD DS: Diagnosis Problem List Completed Was Problem List Reviewed/Reconciled?: Yes Hospital Course Hospital Course Hospital course: Summary: Patient is a 69-year-old female with a past medical history of hypothyroidism, lupus, depression with anxiety on multiple antipsychotic and antidepressant medication who was admitted on 11/29/2024 witnessed seizure in the emergency room, acute tardive dyskinesia, and serotonin syndrome. ER Course: On arrival to the emergency department vitals show initial blood pressure of 175/87, pulse of 109, respiratory rate of 19, temperature of 98.8- later 101.7, saturating 98% on room air. Chemistry panel was showing hyponatremia, WICHO with BUN 33 and creatinine 1.6. Blood glucose 133. Lactic acid was normal. Corrected calcium 10.6. Magnesium was 1.5. AST 55 and ALT 34. Ammonia was negative. LDH was 310. CRP was negative. BNP was 105. TSH and T4 was unremarkable. UA showed pH 8.0 proteinuria and ketones. U tox was positive for marijuana. Acetaminophen level 4.4. Head CT was negative. CXR (-) for lobar pneumonia or pulmonary edema. CT head (-) for gross hemorrhage or mass effect Neurology consulted in the emergency department and suggested to perform a lumbar puncture. Recommended not to start antibiotics as she wants to perform LP first. Patient received 2 doses of Ativan in ED due to agitation. Hospitlization: In the hospital, neurology was consulted. Brain MRI showed no acute hemorrhage mass effect or midline shift and no acute infarct noted. EEG showed no significant siezures but artifacts were noted. Please follow up with Neurology as outpatient if there needs to be additional EEG studies performed. Buproprion was stopped in patinet. Depakote was started on IV and then transitioned to oral form to be continued as outpatient. Blood cultures were negative and urine cultures showed no growth. CSF gram stain showed no organism or WBC. CSF culture pending, please follow up with results. Leukocytosis on admission resolved, likely reactive. Instructions: -Please continue Atogepant 60 mg once a day for migraines -Divalproex 500 mg twice a day for seizures -Continue Venlafaxine 75 mg twice a day and Dicyclomine 10 mg twice a day for behavioral health -Donepezil 10 mg at night for dementia -continue Memantine 10 mg twice a day for dementia -Please change Hydroxyzine 50 mg to bedtime once per night for anxiety. -Hydroxychloroquine 200 mg once a day -STOP Bupropion -Levothyroxine 50 mcg before meals for hypothyroidism -Pregabalin 75 mg twice a day for neuropathy pain. -Lisinopril 5 mg once a day for blood pressure control and stop Nebivolol. -Please continue all other medication as prescribed below. -Please follow up with Dr. Davis, neurologist, within one week of discharge. -Please follow up with Dr. Aguillon, injection molding machine offbearer, for behavioral health medication -Please follow up with your primary care provider within one week of discharge -If your symptoms worsen,please seek immediate medical attention and return to your nearest emergency room -If you do not have a primary care provider, [facility] [address], [place] [address], Dispoition: Home #Subacute Tardive Dyskinesia, improved #Serotonin Syndrome, resolved. #Acute Metabolic Encephalopathy, secondary to polypharmarcy #Seizure Resolved #Sepsis, ruled out #History of major depressive disorder #History of General Anxiety disorder #Chronic pain syndrome #Neuropathic pain #History of migraines #History of lupus #Dementia #History of hypothyroidism #Urinary incontinence #WICHO on Acute on CKD stage III, resolved #CKD stage III - The patient's plan was discussed with attending Dr. Alonso and senior residents Dr. Seferino Keller MD PGY1 Internal Medicine Time Spent with Patient Time attestation: Total time spent providing and/or coordinating discharge services: at least 35 minutes of care and coordination Home Health Home Health Referral Orders: 12/06/24 07:30 Home Health Referral Routine Reason For Exam: Altered mental status Home-Bound The patient must either because of illness or injury, need the aid of supportive devices such as crutches, canes, wheelchairs, and walkers; the use of special transportation; or the assistance of another person in order to leave their place of residence; OR have a condition such that leaving his or her home is medically contraindicated. In addition, the patient also meets the following criteria: patient is normally unable to leave the home and leaving home requires considerable taxing effort. Addendum to Home Health Certification Practitioner's Certification: I certify that the patient has been under my care in the hospital and the care of attending physician (see below). We had a xkel-[id number]-pxed encounter on (see date below). My clinical findings indicate that the patient is home bound per the above criteria and the Home Health Services noted in these orders are medically necessary. The primary reason for the sbtb-xl-[id number] encounter is related to the fact that the patient requires home health services. 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 Wound Care: No IV Therapy: No RN Safety Evaluation: Yes RN to evaluate and create a plan of care that will produce positive outcomes. Palliative Treatment: No Palliative treatment and evaluate the need for hospice. Home Health Aide - Personal Care: No Home Health Aide to assist with any ADL's. Exam Vital Signs Temp Pulse Resp BP Pulse Ox O2 Del Method 97.9 F 90 19 130/68 95 Room Air 12/06/24 08:00 12/06/24 12:00 12/06/24 08:00 12/06/24 08:26 12/06/24 08:00 12/06/24 08:00 Narrative Exam General Appearance: Alert & Oriented X3, well-nourished female who is lying in bed in no acute distress HEENT: Skull symmetrical and atraumatic. Conjunctivae pink and moist. Pupils equal, round, reactive to light and accommodation (PERRL). External ear without lesion or discharge. Straight, nares patient, mucosa pink, no discharge. No thyroid nodule appreciated. No cervical lymphadenopathy. Cardio: Normal Rate and Rhythm with S1 and S2 heart sounds. No murmurs or extra heart sounds auscultated. No bruits on carotid auscultation. No peripheral edema or cyanosis. Lungs: Symmetric with good expansion. Chest and back non-tender. Breath sounds vesicular without crackles, wheezing or rhonchi Abdomen: Non-tender, Non-distended, Normal Reactive Bowel Sounds Neuro: Alert, cooperative, oriented to person, place, and time. Speech clear. CN grossly intact. Upper motor strength 5/5 and Lower motor strength 5/5. Sensation intact. Discharge Plan Plan Patient Disposition: Home w/HOME HEALTH Patient condition on transfer: Stable Care Plan Goals: Instructions: -Please continue Atogepant 60 mg once a day for migraines -Divalproex 500 mg twice a day for seizures -Continue Venlafaxine 75 mg twice a day and Dicyclomine 10 mg twice a day for behavioral health -Donepezil 10 mg at night for dementia -continue Memantine 10 mg twice a day for dementia -Please change Hydroxyzine 50 mg to bedtime once per night for anxiety. -Hydroxychloroquine 200 mg once a day -STOP Bupropion -Levothyroxine 50 mcg before meals for hypothyroidism -Pregabalin 75 mg twice a day for neuropathy pain. -Lisinopril 5 mg once a day for blood pressure control and stop Nebivolol. -Please continue all other medication as prescribed below. -Please follow up with Dr. Davis, neurologist, within one week of discharge. -Please follow up with Dr. Aguillon, injection molding machine offbearer, for behavioral health medication -Please follow up with your primary care provider within one week of discharge -If your symptoms worsen,please seek immediate medical attention and return to your nearest emergency room -If you do not have a primary care provider, you may follow up at the [facility] at [address] [place] [address] [address], [place] [address], Prescriptions/Referrals Prescriptions/Med Rec: New atogepant 60 mg Tablet 60 mg PO QAM Qty: 30 0RF levothyroxine 50 mcg capsule 50 mcg PO ACBR 30 Days Qty: 30 0RF lisinopril 5 mg tablet 5 mg PO QDAY 30 Days Qty: 30 0RF venlafaxine 75 mg tablet 75 mg PO BID 30 Days Qty: 60 0RF pregabalin 75 mg capsule 75 mg PO BID 14 Days Qty: 28 0RF divalproex [Depakote] 500 mg tablet,delayed release (DR/EC) 750 mg PO BID Qty: 60 0RF Continued omeprazole 40 mg Capsule,Delayed Release(Dr/Ec) 40 mg PO QDAY dicyclomine 10 mg capsule 10 mg PO BID donepezil 10 mg Tablet 10 mg PO QPM memantine 10 mg Tablet 10 mg PO BID montelukast 10 mg Tablet 10 mg PO QDAY hydroxychloroquine 200 mg Tablet 200 mg PO QDAY trospium 60 mg Capsule,Extended Release 24hr 60 mg PO QAM Rx Instructions: must be taken on empty stomach at least 1 hour before a meal/food with water only vitamin B complex Tablet 1 tab PO QDAY vit A-vit C-vit [id number]-[id number] 7,160-113-100 ozfd-ui-lzoj Tablet 2 tab PO QAM Trelegy Ellipta 100-62.5-25 mcg Blister With Device 1 inh INHALATION QDAY PRN (Reason: Shortness Of Breath Or Wheezing) albuterol sulfate 2.5 mg /3 mL (0.083 %) Solution For Nebulization 2.5 mg INHALATION Q6H PRN (Reason: Shortness Of Breath Or Wheezing) Changed hydroxyzine pamoate 50 mg Capsule 50 mg PO HS Qty: 30 0RF Discontinued divalproex [Depakote] 500 MG tablet,delayed release (DR/EC) 1,500 mg PO HS Qty: 0 pregabalin [Lyrica] 75 MG capsule 150 mg PO QPM Qty: 0 levothyroxine 50 mcg Tablet 50 mcg PO QAM meclizine 12.5 mg tablet 12.5 mg PO Q12HR PRN (Reason: Nausea) Patient Comments: TAKE 2 TABLETS BY MOUTH NEEDED TWICE A DAY FOR 10 DAYS nebivolol [Bystolic] 5 mg tablet 2.5 mg PO QDAY Patient Comments: TAKE 1 TABLET BY MOUTH EVERY DAY venlafaxine 75 mg capsule,extended release 24hr 75 mg PO QAM Patient Comments: TAKE ONE CAPSULE BY MOUTH EVERY MORNING venlafaxine 150 mg capsule,extended release 24hr 150 mg PO QAM Patient Comments: TAKE 2 CAPSULES BY MOUTH EVERY MORNING trazodone 50 mg tablet 50 mg PO HS Patient Comments: TAKE 1 TABLET BY MOUTH EVERY DAY AT BEDTIME NEEDED FOR INSOMNIA FOR 90 DAYS loratadine 10 mg Tablet 10 mg PO QDAY Ubrelvy 100 mg Tablet 100 mg PO QDAY Qulipta 60 mg tablet 60 mg PO QAM Patient Comments: TAKE 1 TABLET BY MOUTH EVERY DAY tizanidine 4 mg Tablet 4 mg PO QPM Ubrelvy 100 mg Tablet 100 mg PO QDAY PRN (Reason: Migraine Headache) divalproex [Depakote] 500 mg Tablet,Delayed Release (Dr/Ec) 1,500 mg PO HS bupropion HCl 150 mg Tablet Extended Release 24 Hr 150 mg PO QAM Multivitamin Women 50 Plus 8 mg iron-400 mcg-50 mcg Tablet 1 tab PO QDAY Referrals: Jadon Smith MD [Primary Care Provider] - Patient/Caregiver Discharge Instructions Education Materials: Understanding Dementia, Headache Migraine Triggers Prevent Print Language: Polish Stand Alone Forms: Seema Award Info., Patient Portal Info Letter Discharge Order Discharge Orders: Discharge (Routine); Ordered 12/06/24 Ordered By: Dwayne Gentile Quality Discharge Quality Measures VTE prophylaxis Attestestation Attestation I attest that I was physically present for the evaluation, physical examination, lab and imaging review of the patient with the residents. I discussed the case with the residents and agree with the findings and plans of care as documented above. At bedside today, patient is states she is feeling well and does not have any new complaints. Appears comfortable, able to tolerate her diet well. Vital signs and lab results are stable. Underwent MRI brain which was negative for acute stroke. Patient also underwent EEG but had lots of artifact and was not conclusive. Discussed with neurology, recommended continuation of Depakote and follow-up with neurology outpatient. We will reconcile her medicine list as per neurology recommendation. Advised to follow-up with PCP, neurology and psychiatry in 1 to 2 weeks of discharge. Karlee Alonso MD
--- NOTE | 2024-12-07 10:02 | PD.NEUROPROG ---
Documentation for date of: 12/06/24 Subjective Subjective Interval history: Patient was seen in telemetry with her at the bedside. No more abnormal involuntary movements/akathisia/restlessness noted. She is able to tolerate oral diet well she slept well today for several hours. Exam - Neurology Vital Signs Temp Pulse Resp BP Pulse Ox O2 Del Method 97.8 F 84 21 H 107/85 H 98 Room Air 12/06/24 16:00 12/06/24 16:00 12/06/24 16:00 12/06/24 16:00 12/06/24 16:00 12/06/24 16:00 Narrative Exam GENERAL APPEARANCE: Well hydrated, well-nourished in no acute distress. HEENT: Normocephalic, atraumatic, extraocular movements intact. Pupils: Equal reacting to light and accommodation NECK: Supple, no JVD or bruits. CARDIOVASULAR: Heart: S1, S2 heard, regular without S3-S4 or murmur no rubs or gallops. LUNGS/CHEST: Clear to auscultation bilaterally. No rails, rhonchi, or wheezing. Normal inspection. ABDOMEN: Soft, nontender, with normal bowel sounds. No pulsatile masses. No rebound, rigidity, or guarding. Normal inspection and palpation. EXTREMITIES: Normal inspection and palpation. No edema, clubbing or cyanosis. SKIN: Warm and dry without rashes. Normal inspection. MUSCULOSKELETAL: No cervical, thoracic, lumbar or midline bony tenderness. Normal inspection. NEURO: Alert, awake and oriented x3. Cranial nerves: II through XII grossly intact. Speech and language: Normal with no dysarthria or dysphasia. Motor system: Tone and bulk: Normal: Strength: 5 out of 5 in all 4 extremities; No pronator drift noted. Deep tendon reflexes: 2+ bilaterally symmetrical. Plantar reflex: Downgoing bilaterally. Sensory system: Intact to all modalities of sensation bilaterally. Coordination: Intact to oypbjb-[id number]-[id number] and ofuy-lnsm-mepc test bilaterally. No ataxia, no dysmetria, or dysdiadochokinesia noted. No intention tremors noted. Gait: Not tested. No signs of meningeal irritation noted. PSYCHIATRIC: Normal mood and affect. Objective Labs 12/06/24 05:30 12/06/24 05:30 ABG Interpretation ABG results: 12/03/24 13:35 VBG pH 7.57 VBG pCO2 19 L VBG pO2 132 H VBG Base Excess -3 Assessment & Plan Assessment and plan (1) Altered mental status: Status: Acute Assessment and plan: With subacute/tardiveakathisia: resolved CSF analysis: Negative for infection/inflammation Continue home meds: Depakote 1000 mg twice daily PO, pregabalin 75 mg twice daily and venlafaxine 75 mg twice daily. Will discontinue bupropion, clonazepam and lower the dose of hydroxyzine to 50 mg upon discharge Reassurance given to the patient regarding the negative EEG and MRI brain. Stable for discharge home and I will see her back on day. She can resume Qulipta 60 mg a day and Ubrelvy as needed for acute migraine therapy (2) Stage 3 chronic kidney disease: Status: Chronic Assessment and plan: Continue to monitor kidney function closely Avoiding nephrotoxic drugs (3) Hypertension: Status: Acute Assessment and plan: Continue with blood pressure control
--- NOTE | 2024-12-07 12:25 | PC.CM ---
I did not see a preference for a home health agency so I sent to [facility].
--- NOTE | 2024-12-07 16:15 | PC.CM ---
Patient accepted by [facility] and pending start of care date.
[2024-12-09 07:00] LABS: VDRL, CSF Qual* NON-REACTIVE
[2024-12-09 07:03] LABS: HSV2 IgG Type Specific Ab 5.48 INDEX
--- NOTE | 2024-12-09 08:25 | PC.NURSE ---
Soc date is 12/09/24 with [facility]
--- NOTE | 2024-12-09 15:36 | PC.CM ---
start of care date with [facility] is 12/09/24
== END 2024-12-06 16:12 | disposition home health service (06) | DRG 91 ==
LOC: SERX 15:52 → SERHOLD 17:16 → S2NX 12-04 16:36
PROVIDERS: Psychiatry & Neurology Neurology; Registered Nurse General Practice; Admitting Provider Student in an Organized Health Care Education/Training Program; Emergency Provider Emergency Medicine; PCP Family Medicine; Visit Provider Student in an Organized Health Care Education/Training Program
DX: G24.01 Drug induced subacute dyskinesia (principal); G92.8 Other toxic encephalopathy; E87.1 Hypo-osmolality and hyponatremia; N17.9 Acute kidney failure, unspecified; F03.94 Unspecified dementia, unspecified severity, with anxiety; F03.93 Unspecified dementia, unspecified severity, with mood disturbance; E03.9 Hypothyroidism, unspecified; Z87.891 Personal history of nicotine dependence; N18.32 Chronic kidney disease, stage 3b; I12.9 Hypertensive chronic kidney disease with stage 1 through stage 4 chronic kidney disease, or unspecified chronic kidney disease; F12.90 Cannabis use, unspecified, uncomplicated; F41.8 Other specified anxiety disorders; G89.4 Chronic pain syndrome; G90.81 Serotonin syndrome; R32 Unspecified urinary incontinence; G62.9 Polyneuropathy, unspecified; G43.909 Migraine, unspecified, not intractable, without status migrainosus; F41.1 Generalized anxiety disorder
CPT/HCPCS: 36415; 70450; 70551; 71045; 80053; 80074; 80307; 80329; 81001; 82140; 82550; 82728; 82803; 82945; 83605; 83615; 83690; 83735; 83880; 84100; 84145; 84157; 84439; 84443; 84484; 85025; 85610; 85652; 85730; 86140; 86171; 86331; 86592; 86635; 86695; 86696; 86703; 87040; 87070; 87086; 87205; 87400; 87811; 89051; 92610; 93005; 94664; 95816; 96361; 96365; 96366; 96367; 96368; 96375; 96376; 97162; 99285; J1643; J2060; J3475; J3480; J7030; J7040; A9270; G0480

== ENCOUNTER 2024-12-10 10:42 | Emergency (ER) | payer MEDICARE, BC, SELFPAY ==
--- NOTE | 2024-12-10 10:47 | EDNOTE_ITS ---
ED Syncope RME/HPI General Chief Complaint: Syncope / Near Syncope Stated Complaint: SYNCOPE EPISODE Time Seen by Provider: 12/10/24 10:44 Arrival date/time: 12/10/24 10:42 RME / HPI RME / HPI narrative: Patient 69-year-old comes in by ambulance after having episode of nausea vomiting got dizzy and had a syncopal event. After arrival she is complaining of throat and tongue feeling funny she also reports having history of lupus. She was recently in the hospital and seen by Dr. Villareal. Patient reports 55 pound weight loss in the past 6 months. I contacted neurologist Dr. Villareal after initial evaluation and reports to me that the ALOC admission that was recently done was probably due to polypharmacy issues. Also Dr. Villareal has been weaning her off various medications since the recent admission. Primary care doctor is Dr. Smith. Related Data Home Medications ?Medication ?Instructions ?Recorded ?Confirmed omeprazole 40 mg capsule,delayed 40 mg PO QDAY 06/21/18 12/03/24 release dicyclomine 10 mg capsule 10 mg PO BID 07/12/21 12/03/24 albuterol sulfate 2.5 mg/3 mL 2.5 mg inhalation Q6H PRN 12/03/24 12/03/24 (0.083 %) solution for nebulization Shortness Of Breath Or Wheezing donepezil 10 mg tablet 10 mg PO QPM 12/03/24 12/03/24 fluticasone fur. 100 mcg-umeclid 1 inh inhalation QDAY PRN 12/03/24 12/03/24 62.5 mcg-vilant 25 mcg Shortness Of Breath Or Wheezing inhalat.powder (Trelegy Ellipta) hydroxychloroquine 200 mg tablet 200 mg PO QDAY 12/03/24 12/03/24 memantine 10 mg tablet 10 mg PO BID 12/03/24 12/03/24 montelukast 10 mg tablet 10 mg PO QDAY 12/03/24 12/03/24 trospium 60 mg capsule,extended 60 mg PO QAM 12/03/24 12/03/24 release 24 hr vit A 7,160 unit-vit C 113 mg-vit 2 tab PO QAM 12/03/24 12/03/24 E 100 svcy-xigy-lcazaf tablet vitamin B complex 1 tab PO QDAY 12/03/24 12/03/24 Previous Rx's ?Medication ?Instructions ?Recorded atogepant 60 mg tablet 60 mg PO QAM #30 tabs 12/06/24 divalproex 250 mg tablet,delayed 750 mg (3 x 250 mg) PO BID #30 tabs 12/06/24 release hydroxyzine pamoate 50 mg capsule 50 mg PO HS #30 caps 12/06/24 levothyroxine 50 mcg capsule 50 mcg PO ACBR 30 days #30 caps 12/06/24 lisinopril 5 mg tablet 5 mg PO QDAY 30 days #30 tabs 12/06/24 pregabalin 75 mg capsule 75 mg PO BID 14 days #28 caps 12/06/24 venlafaxine 75 mg tablet 75 mg PO BID 30 days #60 tabs 12/06/24 Allergies Allergy/AdvReac Type Severity Reaction Status Date / Time Sulfa (Sulfonamide Allergy Severe HIVES Verified 08/01/24 12:19 Antibiotics) Review of Systems Review of Systems Narrative Review of Systems: Constitutional: DENIES; Fevers Eyes: DENIES; Loss of vision Head/Ear/Nose: DENIES; Loss of hearing Throat: SEE HPI + throat and tongue feels funny . DENIES; Dysphagia Cardiovascular: SEE HPI +syncope and dizziness. DENIES; Chest pain, dyspnea Respiratory: DENIES; Shortness of breath Gastrointestinal: SEE HPI +nausea, vomiting. DENIES; Rectal bleeding or melena. Genitourinary: DENIES; Dysuria (painful or difficult urination) Musculoskeletal: DENIES; Arthralgia (pain in a joint),; Skin: DENIES; Rash Neurological: DENIES; Loss of function or movement Psychiatric: DENIES; recent major life stressor, emotional problem, illicit drug use or abuse Endocrinology: DENIES; Weight change Hematologic/Lymphatic: DENIES; Abnormal bruising Allergic/Immunologic: DENIES; Urticaria (hives) Past Medical History Past Medical History NEUROLOGIC: Positive Neurological Disorders and Migraine CARDIAC: Positive Cardiac Disorders and Hypertension RESPIRATORY: Positive Asthma, Pneumonia and Sleep Apnea GASTROINTESTINAL: Positive Gastrointestinal Disorders, Irritable Bowel and Gastroesophageal Reflux Disease GENITOURINARY: Positive Genitourinary Disorders and Renal Disease REPRODUCTIVE: Positive Previous Pregnancies MUSCULOSKELETAL: Positive Musculoskeletal Disorders and Arthritis ENDOCRINE: Positive Endocrine Disorders and Hypothyroidism PSYCHO/SOCIAL: Positive Depression and Anxiety OTHER HISTORY: Positive Autoimmune Disease (Lupus), Anesthesia Reactions, Chicken Pox and Measles Family History FAMILY HISTORY: Positive Family Cancer Surgical History SURGICAL: Positive Joint Replacement, Open Reduction Internal Fixation, Hysterectomy and Section Social History SMOKING STATUS: Current every day smoker ED Exam Narrative Physical exam: Physical Exam: General: The vital signs were reviewed. Thin mild cachexia the patient is non- toxic, in no apparent distress and appears healthy with a patent airway, no respiratory distress and has no apparent circulatory problems. Head & Scalp: Normocephalic, atraumatic. Face: Appears normal and is without lesions, deformity. Ears: Left external pinna appears normal. Right external pinna appears normal. Eyes: The sclera is anicteric. No obvious photophobia. The Left and Right Orbit/Lid/Conjunctiva appears normal without swelling, discoloration or injection. Nose: The nose is without deformity, discharge or tenderness; Throat: Appears normal. The mucous membranes are pink and moist without exudates, redness or mass seen. The tongue appears normal. Neck: The neck is supple and no apparent mass or adenopathy. Chest: The chest wall is normal in size and symmetry and has no chest wall tenderness or crepitus. The patient displays normal ventilator effort without retractions, accessory muscle use and has adequate air movement bilaterally with no wheezes and no rales. Cardiovascular: Regular rate and rhythm; No murmurs, rubs, or gallops; Gastrointestinal: The abdomen appears normal. No obvious hernias or mass. The abdomen is soft and benign, non-distended, with no pain, no guarding and no rebound tenderness. Bowel sounds are present and normal sounding. No CVA tenderness. Genitourinary: Back/Spine: Nontender Extremities/Musculoskeletal/lymphatic: The bilateral upper and lower extremities are warm. There is no evidence of arterial insufficiency. There is no evidence of venous insufficiency/edema. The patient spontaneously moves bilateral upper and lower extremities with no pain and no limitation of movement. There is no apparent, injury or trauma. Skin: The skin is warm, dry and intact. No rashes. No petechia. No purpura. No abnormal bruising. The color is appropriate with no cyanosis. Mental status/Psychiatric: Mental status is appropriate for age. The patient has no apparent delusions, visual hallucinations, no apparent audible hallucinations. The patient has no apparent suicidal thoughts/ideation and no apparent homicidal thoughts/ideation. Neurological: The patient is awake, alert, interactive, cordial, cooperative and is oriented to name and situation. The patient follows commands and answers historical question with no impairment. There is no visual disturbance apparent. The pupils are equal and reactive bilaterally with normal eye movements and no diplopia The bilateral upper and lower extremities have normal strength, normal range of motion and normal functioning. The gait, station and balance appear to be baseline with no acute change Course Quality Measures none Orders Category Date Time Status EKG (ED ONLY) *Do not use* NOW Care 12/10/24 10:45 Completed EKG (ED Only) Stat Exams 12/10/24 10:45 Ordered XR chest 1V portable Stat Exams 12/10/24 10:45 Completed B-Type Natriuretic Peptide Stat Lab 12/10/24 11:16 Completed Blood Culture (Lab) Stat Lab 12/10/24 11:16 Received CBC Stat Lab 12/10/24 11:16 Completed Comprehensive Metabolic Panel Stat Lab 12/10/24 11:16 Completed Drug Screen,Urine Stat Lab 12/10/24 12:40 Completed Lactate (Lactic Acid) Stat Lab 12/10/24 11:16 Completed Lactic Acid, 3 HR Stat Lab 12/10/24 14:41 Completed Lipase Stat Lab 12/10/24 11:16 Completed Magnesium Stat Lab 12/10/24 11:16 Completed Troponin I Stat Lab 12/10/24 11:16 Completed Urinalysis Stat Lab 12/10/24 12:40 Received Urinalysis, C/S if Indicated Stat Lab 12/10/24 12:40 Received Venous Blood Gas Stat Lab 12/10/24 11:16 Completed Vital Signs Vital signs: Vital Signs Respiratory Rate 20 12/10/24 10:54 Syncope MDM Narrative MDM Narrative:: Patient is initially seen in the ambulance bay comes back complaining she got dizzy vomited and had a syncopal event. She was just in the hospital for altered mental status and I called Dr. Villareal states the patient has polypharmacy issues and the cause of her altered mental status is most likely due to that. Patient is also complaining of some vague throat and tongue symptoms but she is speaking clearly. Also states she has lupus. Medical workup is initiated and previous charts were reviewed. Patient seems to have an angry predisposition when asking lots of questions. Medical workup was initiated which reveals white count 10.9 hemoglobin 11.1 venous blood gas 7.41 pCO2 of 41 sodium 140 potassium 4.5 chloride 106 CO2 25 BUN is elevated 24 baseline is 17 creatinine slightly elevated at 1.4 and bas evie is 0.9. Lactic acid is also bumped at 3.1 etiology of this is uncertain was only some dehydration initial urine collected evidently was insufficient and were still waiting for results at 1336 hrs. Second lactic acid came back at 1.8 patient is feeling much better. We tried to get urine out of her for a UA and catheter a second time but they could not get any adequate urine. Evidently patient has incontinence and urinated in the diaper. Patient denies having any urinary symptoms. And after discussion we decided just delay that test and patient ambulated the turk with the usual amoun t of assistance. Her O2 sats were good she is got no nausea vomiting she drank fluids without any nausea vomiting and wants to go home and follow-up with her doctor tomorrow. She knows to return if getting worse. Her is with her and will make sure that she stays on ground level and gets assistance when going to the bathroom is to prevent any accidental injury. There is no cause of her syncope is uncertain maybe she had vasovagal maybe she is just dehydrated. Clinically she does not look septic and her lactic acid which was elevated initially and normalized with fluids. Pulse rate at the time of discharge is 91 she is smiling alert in no distress and patient advised at great length. Patient data External records reviewed:: [facility] previous records (I reviewed admission from 12/03/2024 through 12/07/2024 ) Clinical information provided by:: patient and EMS Social determinants that could affect healthcare access:: mental health Patient has the following chronic illnesses:: lupus, hypothyroidism, depression, anxiety How is presenting disease/condition affected by chronic disease/condition?: exacerbated by Evaluation data The following diagnostics were reviewed and interpreted by me:: lab results and radiology exam(s) Lab and/or radiology exams considered but not ordered:: None Interpretation Summary: Ordering Physician: Moy Charles MD Date of Service: 12/10/24 Procedure(s): XR chest 1V portable Accession Number(s): [id number] cc: Moy Charles MD; Alejo Pepper MD~ Examination: AP chest single view TECHNIQUE: AP portable upright chest single view Exam date and time: December 10, 2024 1131 hours INDICATIONS: Confusion syncopal episode today. FINDINGS: Normal heart size. No aspiration pneumonia. No pulmonary edema. Significant osteopenia IMPRESSION: No aspiration pneumonia Dictated By: Alejo Pepper MD Signed By: <Electronically signed by Alejo Pepper MD in OV> 12/10/24 1158 Medications / Prescriptions Medications or Prescriptions considered but not ordered:: None Medication administrations:: None Consultations Consultation(s) initiated? (list below): Yes Consultation #1 (Physician, Specialty, Details): I spoke with neurologist Dr. Villareal as noted above. Time: 10:47 Diagnosis Syncope Differential Diagnosis: syncope due to orthostatic hypotension, vasovagal syncope and dehydration Most likely diagnosis given after review of the tests above:: Syncope Acute prerenal azotemia History of weight loss Polypharmacy Admission Indicated Admission indicated?: not indicated Admission Request Was there a request for admission?: No Disposition Plan Disposition Plan: Discharge Discharge Attestation Discharge Attestation: The patient and all family members were given an opportunity to ask questions and understood the discharge instructions. Discharge instructions specifically effects, indications for sooner follow up or return to the emergency department, and the expected course of current diagnosis. Patient condition: Stable Discharge Plan Plan Patient Disposition: HOME (Self Care) Prescriptions/Referrals Prescriptions/Med Rec: No Action omeprazole 40 mg Capsule,Delayed Release(Dr/Ec) 40 mg PO QDAY dicyclomine 10 mg capsule 10 mg PO BID donepezil 10 mg Tablet 10 mg PO QPM memantine 10 mg Tablet 10 mg PO BID montelukast 10 mg Tablet 10 mg PO QDAY hydroxychloroquine 200 mg Tablet 200 mg PO QDAY trospium 60 mg Capsule,Extended Release 24hr 60 mg PO QAM Rx Instructions: must be taken on empty stomach at least 1 hour before a meal/food with water only vitamin B complex Tablet 1 tab PO QDAY vit A-vit C-vit E-pwgh-fxduit 7,160-113-100 mwgy-ss-mgmh Tablet 2 tab PO QAM Trelegy Ellipta 100-62.5-25 mcg Blister With Device 1 inh INHALATION QDAY PRN (Reason: Shortness Of Breath Or Wheezing) albuterol sulfate 2.5 mg /3 mL (0.083 %) Solution For Nebulization 2.5 mg INHALATION Q6H PRN (Reason: Shortness Of Breath Or Wheezing) atogepant 60 mg Tablet 60 mg PO QAM Qty: 30 0RF levothyroxine 50 mcg capsule 50 mcg PO ACBR 30 Days Qty: 30 0RF lisinopril 5 mg tablet 5 mg PO QDAY 30 Days Qty: 30 0RF venlafaxine 75 mg tablet 75 mg PO BID 30 Days Qty: 60 0RF pregabalin 75 mg capsule 75 mg PO BID 14 Days Qty: 28 0RF hydroxyzine pamoate 50 mg Capsule 50 mg PO HS Qty: 30 0RF divalproex 250 mg tablet,delayed release (DR/EC) 750 mg PO BID Qty: 30 0RF Referrals: Jadon Smith MD [Primary Care Provider] - In 1 week Problem List Clinical Impression: Syncope, Acute prerenal azotemia, History of weight loss, Polypharmacy Patient/Caregiver Discharge Instructions Additional Instructions: Follow-up with your regular doctor and Dr. Villareal to further evaluate your medications. Today had an episode of syncope or passing out the etiology of this is unclear. You seem to be better after we hydrated you. If you are getting worse weak passing out you need to return for further evaluation. Please communicate the episode of passing out to your doctors expectedly Dr Villareal who was called and is aware of your visit today. We were unable to collect a urine specimen and as we discussed if you are having urinary symptoms, fever or getting worse in any way or lower abdominal pain please return for reevaluation. Print Language: [place] Stand Alone Forms: Patient Portal Info Letter
[2024-12-10 10:54] VITALS: RESP 20
[2024-12-10 11:13] VITALS: BP 158/77; PULSE 97; RESP 22; TEMP 36.5; O2SAT 70
[2024-12-10 11:14] VITALS: BMI 16.4
[2024-12-10 11:28] LABS: Base Excess, Venous 1 (-3-3); O2 Saturation, Venous 29 % (96-97); PCO2, Venous 41 mmHg (36-56); PO2, Venous 20 mmHg (15-58); pH, Venous 7.41 (7.33-7.66)
[2024-12-10 11:29] LABS: Lactate (Lactic Acid) 3.1 mMol/L (0.4-2.0)
[2024-12-10 11:30] LABS: Basophils # (Auto) 0.1 Thou/mm3 (0.0-0.2); Basophils % (Auto) 1 % (0-2.5); Eosinophils # (Auto) 0.1 Thou/mm3 (0.0-0.5); Eosinophils % (Auto) 1 % (0-10); Hematocrit 32.8 % (36.0-46.0); Hemoglobin 11.1 g/dL (12.0-16.0); Immature Granulocytes % (Auto) 1 % (0-0); Immature Granulocytes Auto 0.07 Thou/mm3 (0.00-0.00); Lymphocytes # (Auto) 3.2 Thou/mm3 (1.0-4.8); Lymphocytes % (Auto) 29 % (10-50); Mean Corpuscular HGB Conc 33.8 g/dl (31.0-37.0); Mean Corpuscular Hemoglobin 30.7 pg (25.0-35.0); Mean Corpuscular Volume 91 fL (80-100); Monocytes # (Auto) 1.1 Thou/mm3 (0.0-0.8); Monocytes % (Auto) 10 % (0-12); Neutrophils # (Auto) 6.5 Thou/mm3 (1.8-7.7); Neutrophils % (Auto) 59 % (37-80); Nucleated Red Blood Cell % 0 /100 WBC (0); Platelet Count 272 Thou/mm3 (140-440); RDW Standard Deviation 46.8 fL (36.4-46.3); Red Blood Count 3.62 Miln/mm3 (4.00-5.20); White Blood Count 10.9 Thou/mm3 (3.6-11.0)
[2024-12-10 11:47] LABS: B-Type Natriuretic Peptide 32 pg/mL (0-100)
[2024-12-10 11:48] LABS: Alanine Aminotransferase 27 U/L (10-49); Albumin, Serum 4.2 gm/dL (3.4-4.8); Albumin/Globulin Ratio 1.3 (1.2-2.2); Alkaline Phosphatase 38 U/L (46-116); Anion Gap 9 (7-16); Aspartate Amino Transferase 16 U/L (0-34); BUN/Creatinine Ratio 17 Ratio (12-20); Bilirubin,Total 0.5 mg/dL (0.3-1.2); Blood Urea Nitrogen 24 mg/dL (9-23); Calcium 10.5 mg/dL (8.3-10.6); Calcium (Corrected) 10.5 mg/dL (8.5-10.1); Chloride 106 mMol/L (98-107); Creatinine (Component) 1.4 mg/dL (0.6-1.3); Estimated Creatinine Clearance 28.9 mL/min (>60); Globulin 3.2 gm/dL (2.3-3.5); Glucose 111 mg/dL (74-106); Lipase 65 U/L (12-53); Magnesium 1.6 mg/dL (1.6-2.6); Osmolality,Calculated 284 (275-295); Potassium 4.5 mMol/L (3.4-5.1); Sodium 140 mMol/L (136-145); Total Protein 7.4 gm/dL (5.7-8.2); Troponin I < 0.020 ng/mL (0.0-0.045); eGFR 41 See Note
[2024-12-10 12:26] VITALS: BP 92/68; PULSE 100; RESP 23; TEMP 36.7; O2SAT 96
[2024-12-10 14:26] LABS: Reflex Lactate? Y
[2024-12-10 14:58] LABS: Lactic Acid, 3 HR 1.4 mMol/L (0.4-2.0)
[2024-12-10 15:41] LABS: Amphetamine/Methamp Scrn,U Negative (Negative); Barbiturate Screen,Urine Negative (Negative); Benzodiazepines Screen,Urine Negative (Negative); Benzoylecgonine Screen, Ur Negative (Negative); Fentanyl Screen,Urine Negative (Negative); Opiate Screen,Urine Negative (Negative); THC Screen,Urine Positive (Negative)
--- NOTE | 2024-12-10 16:27 | PC.NURSE ---
Rn provided patient with 2liter of water to drink, patient drank and tolerated well. Patient wears brief. RN attempted straight cath x 2 to obtain more urine for ua cx and patient was dry. Dr Quijano informed of such. RN to attempt to ambulate in ED w/o assist. Patient uses a walker at home.
[2024-12-10 16:36] VITALS: BP 103/74; PULSE 91; RESP 20; TEMP 36.4; O2SAT 100
== END 2024-12-10 17:52 | disposition home or self-care (01) ==
PROVIDERS: Emergency Provider Emergency Medicine; PCP Family Medicine
DX: R55 Syncope and collapse (principal); R79.89 Other specified abnormal findings of blood chemistry; R63.4 Abnormal weight loss; Z68.1 Body mass index [BMI] 19.9 or less, adult; I10 Essential (primary) hypertension; F17.200 Nicotine dependence, unspecified, uncomplicated
CPT/HCPCS: 36415; 71045; 80053; 80307; 81001; 82803; 83605; 83690; 83735; 83880; 84484; 85025; 87040; 93005; 99283

== ENCOUNTER → 2025-03-26 | Outpatient (CLI) | payer MEDICARE, BC, SELFPAY ==
[2025-03-26 14:33] LABS: Collection Type, Urine Clean Catch
[2025-03-26 15:29] LABS: Bacteria,Urine Rare; Bilirubin,Urine Negative (Negative); Blood,Urine Negative (Negative); Clarity,Urine Turbid (Clear/Hazy); Glucose, Urine Negative (Negative); Hyaline Casts,Urine < 1 /hpf (0-1); Ketones,Urine Negative (Negative); Leukocyte Esterase,Urine Positive (Negative); Nitrite,Urine Negative (Negative); Protein,Urine Trace (Neg - Trace); RBC,Urine 3 /hpf (0-3); Specific Gravity,Urine 1.022 (1.001-1.035); Squamous Epithelial Cell,Urine 1 /hpf (0-5); Urobilinogen,Urine Negative mg/dL (0.0-1.0); WBC,Urine 34 /hpf (0-5)
== END | disposition home or self-care (01) ==
PROVIDERS: Referring Provider Student in an Organized Health Care Education/Training Program; Visit Provider Student in an Organized Health Care Education/Training Program
DX: N39.0 Urinary tract infection, site not specified (principal)
CPT/HCPCS: 81001; 87086

== ENCOUNTER → 2025-05-14 | Outpatient (CLI) | payer MEDICARE, BC, SELFPAY ==
--- NOTE | 2025-05-14 14:37 | XR_ITS ---
Examination: Fingers, right hand first digit 3 views Technique: AP, oblique, lateral views right hand first digit. Exam date and time: May 14, 2025 1448 hours INDICATIONS: Thumb pain 2 years. FINDINGS: No fracture or dislocation Mild osteoarthritis first carpometacarpal joint, first metacarpophalangeal joint and interphalangeal joint first digit IMPRESSION: Mild osteoarthritis as above
--- NOTE | 2025-05-14 14:37 | XR_ITS ---
Examination: Wrist, left 3 views Technique: Wrist AP, oblique, lateral 3 views Date and time of exam: May 14, 2025 1448 hours INDICATIONS: Left wrist pain beginning 6 months ago. FINDINGS: Moderate osteopenia No wrist fracture or dislocation Mild narrowing radiocarpal joint Mild narrowing navicular trapezium first carpometacarpal joints No erosive arthritis IMPRESSION: Arthritic change as above
--- NOTE | 2025-05-14 14:37 | XR_ITS ---
Examination: Bilateral hands, 6 views. Technique: AP, Oblique, Lateral each hand total 6 views Date and time of exam: May 14, 2025 1448 hours INDICATIONS: Bilateral hand pain 6 months. FINDINGS: Moderate osteopenia. No fracture or dislocation involving either hand Mild bilateral osteoarthritis distal interphalangeal joints second through fifth digits and interphalangeal joint first digit as well as bilateral first carpometacarpal joints No erosive arthritis No foreign bodies IMPRESSION: Mild osteoarthritis as above
== END | disposition home or self-care (01) ==
PROVIDERS: PCP Student in an Organized Health Care Education/Training Program
DX: M18.11 Unilateral primary osteoarthritis of first carpometacarpal joint, right hand (principal); M15.1 Heberden's nodes (with arthropathy); M19.032 Primary osteoarthritis, left wrist
CPT/HCPCS: 73110; 73130; 73140

== ENCOUNTER → 2025-05-22 | Outpatient (CLI) | payer MEDICARE, BC, SELFPAY ==
--- NOTE | 2025-05-22 | XR_ITS ---
EXAMINATION: Ankle, left 3 views . Technique: Ankle AP, oblique, lateral 3 views Date and time of exam: May 22, 2025 1253 hours INDICATIONS: Left ankle pain beginning 2 weeks ago FINDINGS: Healed fracture medial malleolus Orthopedic hardware satisfactory position Moderate osteoarthritis tibiotalar joint No acute fracture No cortical bone destruction IMPRESSION: No acute fracture Moderate osteoarthritis tibiotalar joint
--- NOTE | 2025-05-22 12:21 | XR_ITS ---
Examination: Duplex scan of the lower extremity, unilateral left complete Date and time of exam: May 22, 2025 1244 hours INDICATIONS: Left ankle swelling and pain beginning one month ago Technique: Duplex scan of the extremity veins using B-mode/grayscale imaging and Doppler spectral analysis and color flow Attention is directed to internal echogenicity, compression and augmentation involving these veins, color flow assessment, spectral analysis Findings: Major deep venous structures in the extremity demonstrate normal course and caliber. There is no evidence of deep vein thrombosis. Normal color flow and spectral analysis Impression: Negative for DVT..
== END | disposition home or self-care (01) ==
LOC: CDIM 12:11
PROVIDERS: PCP Student in an Organized Health Care Education/Training Program; Referring Provider Student in an Organized Health Care Education/Training Program; Visit Provider Student in an Organized Health Care Education/Training Program
DX: M19.072 Primary osteoarthritis, left ankle and foot (principal); R22.42 Localized swelling, mass and lump, left lower limb
CPT/HCPCS: 73610; 93971

== ENCOUNTER → 2025-07-03 | Outpatient (CLI) | payer MEDICARE, BC, SELFPAY ==
--- NOTE | 2025-07-03 16:00 | XR_ITS ---
Examination:Left hip AP, lateral, AP pelvis 3 views Technique: Hip AP lateral, AP pelvis, 3 views Exam date and time:July 03, 2025 1616 hours INDICATIONS: Left hip pain beginning 6 months ago. FINDINGS: Healed left hip fracture No acute hip or pelvic fracture Minimal narrowing hip joints Likely urinary bladder stimulator lead IMPRESSION: Healed left hip fracture. Minimal narrowing hip joints.
== END | disposition home or self-care (01) ==
PROVIDERS: PCP Family Medicine; Referring Provider Student in an Organized Health Care Education/Training Program; Visit Provider Student in an Organized Health Care Education/Training Program
DX: M25.852 Other specified joint disorders, left hip (principal)
CPT/HCPCS: 73502

== ENCOUNTER → 2025-07-10 | Outpatient (CLI) | payer MEDICARE, BC, SELFPAY | END | disposition home or self-care (01) | PROVIDERS: PCP Student in an Organized Health Care Education/Training Program; Referring Provider Student in an Organized Health Care Education/Training Program; Visit Provider Student in an Organized Health Care Education/Training Program | DX: L02.511 Cutaneous abscess of right hand (principal); S61.001A Unspecified open wound of right thumb without damage to nail, initial encounter; S61.200A Unspecified open wound of right index finger without damage to nail, initial encounter; X58.XXXA Exposure to other specified factors, initial encounter; J45.909 Unspecified asthma, uncomplicated; M06.9 Rheumatoid arthritis, unspecified | CPT/HCPCS: 99214; A9270; G0463 ==

== ENCOUNTER → 2025-07-23 | Outpatient (CLI) | payer MEDICARE, BC, SELFPAY ==
--- NOTE | 2025-07-23 13:17 | XR_ITS ---
Examination: Lumbar spine, 5 views Technique: Lumbar spine AP, lateral, coned lateral lower lumbar spine, bilateral obliques 5 views Exam date and time: July 23, 2025, 1313 hours. COMPARISON: June 28, 2022 INDICATIONS: Low back pain years FINDINGS: Lumbar dextroscoliosis 15 degrees Urinary bladder stimulating lead Significant osteopenia No lumbar fracture No significant lumbar disc narrowing Mild lumbar spondylosis IMPRESSION: Lumbar dextroscoliosis 15 degrees
== END | disposition home or self-care (01) ==
PROVIDERS: PCP Family Medicine; Referring Provider Chiropractor; Visit Provider Chiropractor
DX: M41.86 Other forms of scoliosis, lumbar region (principal)
CPT/HCPCS: 72110

== ENCOUNTER → 2025-08-07 | Outpatient (CLI) | payer MEDICARE, BC, SELFPAY | END | disposition home or self-care (01) | LOC: SWHD 14:43 | PROVIDERS: PCP Family Medicine; Referring Provider Family Medicine; Visit Provider Student in an Organized Health Care Education/Training Program | DX: L02.511 Cutaneous abscess of right hand (principal); S61.001A Unspecified open wound of right thumb without damage to nail, initial encounter; S61.200A Unspecified open wound of right index finger without damage to nail, initial encounter; X58.XXXA Exposure to other specified factors, initial encounter; J45.909 Unspecified asthma, uncomplicated; M06.9 Rheumatoid arthritis, unspecified | CPT/HCPCS: 99213; G0463 ==

== ENCOUNTER → 2025-08-25 | Outpatient (CLI) | payer MEDICARE, BC, SELFPAY ==
--- NOTE | 2025-08-25 09:15 | XR_ITS ---
Examination: Breast ultrasound complete, bilateral Date and time of exam: August 25 thousand 25 0933 hours INDICATIONS: Mammogram September 23, 2024 12 mm nodule inner upper right breast 8mm focal asymmetry outer right breast, 6 mm focal asymmetry upper left breast MLO view Technique: Real-time grayscale ultrasonographic imaging bilateral breasts, including all 4 quadrants as well as nipple retroareolar and axillary regions. Findings: Sonographic images right breast 1:00 nodule circumscribed 5 x 5 mm 11:00 nodule lobular margins 9 x 7 mm Axillary lymph nodes and 9 Sonographic images left breast 1:00 cyst 2 x 3 mm 7:00 circumscribed nodule 4 x 3 mm 10:00 nodule lobular margins 6 x 3 mm 11 mm axillary lymph node benign IMPRESSION: BI-RADS Category 3: Probably benign findings Recommend 1 additional 6 month bilateral breast sonography follow-up to document stability of multiple nodules described above
--- NOTE | 2025-08-25 10:15 | XR_ITS ---
Examination: Diagnostic digital mammography, bilateral Computer aided detection 3-D breast Tomosynthesis, bilateral Date and time of exam: August 25, 2025, 1013 hours INDICATIONS: Mammogram September 23, 2024 12 mm oval mass inner upper right breast 8mm focal asymmetry outer right breast, 6 mm focal asymmetry upper left breast MLO view Technique: Nonmagnified MLO, CC views of the breasts to been obtained, reconstructed from 3-D Tomosynthesis images. R2 computer aided detection program utilized for evaluation of suspicious masses and/or abnormal calcifications. 3-D Tomosynthesis images obtained. Findings: The breasts are heterogeneously dense, which may obscure small masses. No suspicious nodules are noted on the spot compression views Impression: BI-RADS Category 2: Benign findings Recommend yearly follow-up mammography Please see the bilateral breast sonography report today indicating 1 additional 6 month bilateral breast sonography follow-up needed.
== END | disposition home or self-care (01) ==
PROVIDERS: PCP Student in an Organized Health Care Education/Training Program; Referring Provider Student in an Organized Health Care Education/Training Program; Visit Provider Student in an Organized Health Care Education/Training Program
DX: R92.333 Mammographic heterogeneous density, bilateral breasts (principal); N63.22 Unspecified lump in the left breast, upper inner quadrant; N63.12 Unspecified lump in the right breast, upper inner quadrant; N63.21 Unspecified lump in the left breast, upper outer quadrant; N63.11 Unspecified lump in the right breast, upper outer quadrant; N63.24 Unspecified lump in the left breast, lower inner quadrant
CPT/HCPCS: 76641; 77062; 77066; G0279

== ENCOUNTER 2025-08-30 06:43 | Emergency (ER) | payer MEDICARE, BC, SELFPAY ==
[2025-08-30] VITALS (8 sets, daily range): BP systolic 144–188; BP diastolic 77–123; PULSE 74–108; RESP 16–18; TEMP 36.8–37.1; O2SAT 98–100
--- NOTE | 2025-08-30 07:07 | PD.EDADULT ---
ED General RME/HPI General Chief complaint: Abdominal Pain Stated complaint: ABD PAIN Time Seen by Provider: 08/30/25 07:07 Arrival date/time: 08/30/25 06:43 RME / HPI RME / HPI narrative: Justa is 69 y/o female with PMHx of fibromyalgia, hypothyroidism, anxiety, depression, lupus, and urinary incontinence s/p urinary bladder stimulator who comes in for evaluation of worsening sharp right lower quadrant/pelvic pain, onset yesterday, rated 10 out of 10, has never had this before, with associated vomiting described as red and happened 2 times. Patient reports that she has never had this pain before, and she wants to get evaluated. She currently lives at a facility (for unknown reason). She had a colonoscopy before which has been benign. She denies taking any ibuprofen, Aleve or any other NSAIDs and uses Tylenol for pain. She endorses history of hysterectomy, and , however she is unsure if she has ever gotten her gallbladder or appendix removed. Her last bowel movement was yesterday and it was normal. She used to vape but stopped. No drinking history at this time. No other complaints at this time. 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 Miranda. Related Data Home Medications ?Medication ?Instructions ?Recorded ?Confirmed omeprazole 40 mg capsule,delayed 40 mg PO QDAY 06/21/18 12/03/24 release dicyclomine 10 mg capsule 10 mg PO BID 07/12/21 12/03/24 albuterol sulfate 2.5 mg/3 mL 2.5 mg inhalation Q6H PRN 12/03/24 12/03/24 (0.083 %) solution for nebulization Shortness Of Breath Or Wheezing donepezil 10 mg tablet 10 mg PO QPM 12/03/24 12/03/24 fluticasone fur. 100 mcg-umeclid 1 inh inhalation QDAY PRN 12/03/24 12/03/24 62.5 mcg-vilant 25 mcg Shortness Of Breath Or Wheezing inhalat.powder (Trelegy Ellipta) hydroxychloroquine 200 mg tablet 200 mg PO QDAY 12/03/24 12/03/24 memantine 10 mg tablet 10 mg PO BID 12/03/24 12/03/24 montelukast 10 mg tablet 10 mg PO QDAY 12/03/24 12/03/24 trospium 60 mg capsule,extended 60 mg PO QAM 12/03/24 12/03/24 release 24 hr vit A 7,160 unit-vit C 113 mg-vit 2 tab PO QAM 12/03/24 12/03/24 E 100 [id number] tablet vitamin B complex 1 tab PO QDAY 12/03/24 12/03/24 Previous Rx's ?Medication ?Instructions ?Recorded atogepant 60 mg tablet 60 mg PO QAM #30 tabs 12/06/24 divalproex 250 mg tablet,delayed 750 mg (3 x 250 mg) PO BID #30 tabs 12/06/24 release hydroxyzine pamoate 50 mg capsule 50 mg PO HS #30 caps 12/06/24 scopolamine base 1 mg over 3 days 1 mg topical Q72H PRN nausea and 08/30/25 transdermal patch vomiting #4 ea Allergies Allergy/AdvReac Type Severity Reaction Status Date / Time Sulfa (Sulfonamide Allergy Severe HIVES Verified 08/01/24 12:19 Antibiotics) Review of Systems Review of Systems Narrative Review of Systems: 12 point ROS reviewed and is otherwise negative unless stated directly in the HPI ED Exam Narrative Physical exam: General: AAOx3, in mild distress, looks frail HEENT: Moist mucous membranes, conjunctiva clear, EOMI, PERRLA, Cardiovascular: S1, S2, radial pulses +2 bilat, tachycardic Pulmonary: CTAB bilat no cough, no wheezing GI: Minimal tenderness to right lower quadrant and bladder region, no guarding, rigidity, rebound tenderness or distension Extremities: No presence of trace or pitting edema in lower extremities bilaterally, dorsalis pedis pulses +2 bilaterally Neuro: AAOx3, no focal motor or sensory deficits in the UE or LE bilat Psych: Good judgement, thought and behavior Course Quality Measures none Orders Category Date Time Status Bedside COVID-19 Antigen Test NOW Care 08/30/25 07:08 Active EKG (ED ONLY) *Do not use* NOW Care 08/30/25 07:08 Completed Insert IV NOW Care 08/30/25 07:08 Active Miscellaneous Nursing Order NOW Care 08/30/25 07:[address] abdomen pelvis wo con Stat Exams 08/30/25 07:09 Completed EKG (ED Only) Stat Exams 08/30/25 07:08 Draft US abdomen Stat Exams 08/30/25 08:49 Completed XR chest 1V portable Stat Exams 08/30/25 07:09 Completed CBC Stat Lab 08/30/25 08:05 Completed CMP [Comprehensive Metabolic Panel] Stat Lab 08/30/25 08:05 Completed Drug Screen,Urine Stat Lab 08/30/25 08:46 Completed Folate Stat Lab 08/30/25 15:11 Received Influenza A & B Rapid Panel Stat Lab 08/30/25 07:09 Ordered Lactic Acid [Lactate (Lactic Acid)] Stat Lab 08/30/25 08:05 Completed Lipase Stat Lab 08/30/25 08:05 Completed Mag [Magnesium] Stat Lab 08/30/25 08:05 Completed Parathyroid Hormone Intact Stat Lab 08/30/25 08:05 Received Phosphorous Stat Lab 08/30/25 08:05 Completed Procalcitonin Stat Lab 08/30/25 08:05 Completed TSH [Thyroid Stimulating Hormone] Stat Lab 08/30/25 08:05 Completed Troponin I Stat Lab 08/30/25 08:05 Completed Urinalysis, C/S if Indicated Stat Lab 08/30/25 08:46 Completed Venous Blood Gas Stat Lab 08/30/25 08:05 Completed Dicyclomine Inj [Bentyl Inj] Med 08/30/25 14:39 Discontinued 10 mg IM X1 ONE Labetalol IV [Trandate IV] Med 08/30/25 14:21 Discontinued 10 mg IVP X1 ONE Morphine* Inj Med 08/30/25 07:12 Discontinued 4 mg IVP X1 ONE Morphine* Inj Med 08/30/25 14:34 Discontinued 4 mg IVP X1 ONE Ondansetron Inj [Zofran Inj] Med 08/30/25 07:16 Discontinued 4 mg IVP X1 ONE Scopolamine [Transderm-Scop Patch] Med 08/30/25 14:34 Discontinued 1 mg TOP X1 ONE Sodium Chloride 0.9% 1000 ml [Ns] 1,000 ml Med 08/30/25 09:27 Discontinued IV 999 mls/hr Sodium Chloride 0.9% 500 ml [Ns] 500 ml Med 08/30/25 14:34 Discontinued IV 999 mls/hr cloNIDine HCL [Catapres] Med 08/30/25 14:37 Discontinued 0.1 mg PO X1 ONE hydrALAZINE INJ [Apresoline Inj] Med 08/30/25 16:21 Discontinued 5 mg IVP X1 ONE Vital Signs Vital signs: Vital Signs Temperature 98.7 F 08/30/25 06:51 Pulse Rate 100 08/30/25 06:51 Respiratory Rate 18 08/30/25 06:51 Blood Pressure 170/88 H 08/30/25 06:51 Pulse Oximetry (%) 100 08/30/25 06:51 Oxygen Delivery Method Room Air 08/30/25 06:51 Discharge Plan Plan Patient Disposition: HOME (Self Care) Prescriptions/Referrals Prescriptions/Med Rec: New scopolamine base 1 mg over 3 days patch 3 day 1 mg topical Q72H PRN (Reason: nausea and vomiting) Qty: 4 0RF Rx Instructions: Apply one patch as needed for nausea No Action omeprazole 40 mg Capsule,Delayed Release(Dr/Ec) 40 mg PO QDAY dicyclomine 10 mg capsule 10 mg PO BID donepezil 10 mg Tablet 10 mg PO QPM memantine 10 mg Tablet 10 mg PO BID montelukast 10 mg Tablet 10 mg PO QDAY hydroxychloroquine 200 mg Tablet 200 mg PO QDAY trospium 60 mg Capsule,Extended Release 24hr 60 mg PO QAM Rx Instructions: must be taken on empty stomach at least 1 hour before a meal/food with water only vitamin B complex Tablet 1 tab PO QDAY vit A-vit C-vit L-sjqr-ritveg 7,160-113-100 vtzj-nh-rlvy Tablet 2 tab PO QAM Trelegy Ellipta 100-62.5-25 mcg Blister With Device 1 inh INHALATION QDAY PRN (Reason: Shortness Of Breath Or Wheezing) albuterol sulfate 2.5 mg /3 mL (0.083 %) Solution For Nebulization 2.5 mg INHALATION Q6H PRN (Reason: Shortness Of Breath Or Wheezing) atogepant 60 mg Tablet 60 mg PO QAM Qty: 30 0RF hydroxyzine pamoate 50 mg Capsule 50 mg PO HS Qty: 30 0RF divalproex 250 mg tablet,delayed release (DR/EC) 750 mg PO BID Qty: 30 0RF Referrals: No Primary/Family,Physician [Primary Care Provider] - In 1 week Problem List Clinical Impression: Drug-induced nausea and vomiting Patient/Caregiver Discharge Instructions Education Materials: ED Vomiting and Diarrhea ... Additional Instructions: Discharge instructions Follow-up with your PCP within 1 week I would avoid taking Zofran (ondansetron) as thi medicine can increase your QT interval as it was slightly elevated in the hospital. I would recommend following with your outpatient doctor to monitor this level. Avoid THC as this can induce nausea and vomiting I am prescribing you scopolamine patch use as needed Return to ED if your symptoms worsen or return Print Language: [place] Stand Alone Forms: [employer] Award Info., Patient Portal Info Letter MDM Narrative MDM hospital course (for use when minimal MDM required): 0721: Basic labs ordered, lipase, will hold off on blood cultures as patient is not spiking fever and low suspicion for sepsis at this time, IV morphine. For imaging, will order CT abdomen pelvis for rule out for acute pathologies including appendicitis, cystitis, diverticulitis, pancreatitis. Zofran for antiemetic. 1450: Reviewed patient's labs which showed hypercalcemia at 10.9 ordered PTH for patient to follow-up on outpatient. Hypercalcemia could be related to dehydration, however PTH will help diagnose if it is primary secondary or tertiary if it is not dehydration. Patient continued to having pain, however abdominal CT and ultrasound unremarkable for stones, pancreatitis. It was noted that patient uses methotrexate THC use. For rheumatologic conditions and also urine drug screen THC shows will give additional fluid bolus, scopolamine patch and dicyclomine. Will add antihypertensive agent with clonidine as well. Patient will need to tolerate oral trial for discharge as she is having persistent nausea. 1624: Oral trial, hydralazine 5 mg x1. She tolerates the oral diet. CT abd/pelvis and US abdomen unremarkable at this time. As patient is able to tolerate diet, at this time, I will recommend patient to avoid THC products moving forward. Pt has multiple reasons to be in chronic pain as it can be attributed to SLE and fibromylagia. However, due to no WICHO and pt able to tolerate oral, pt is medically cleared for discharge as there is no request for admission inpatient at this time. Pt will need to return to if patient's symptoms worsen or return. Medication Administration(s) Medication Administration History Discontinued Medications Clonidine (Clonidine Hcl 0.1 Mg Tablet) 0.1 mg PO X1 ONE Stop: 08/30/25 14:38 Last Admin: 08/30/25 14:47 Dose: 0.1 mg Documented By: POLLY Dicyclomine HCl (Dicyclomine Inj 10 Mg/Ml 2ml Vial) 10 mg IM X1 ONE Stop: 08/30/25 14:40 Last Admin: 08/30/25 14:53 Dose: 10 mg Documented By: POLLY Hydralazine HCl (Hydralazine Inj 20 Mg/Ml Vial) 5 mg IVP X1 ONE Stop: 08/30/25 16:22 Sodium Chloride (Ns) 1,000 mls @ 999 mls/hr IV .Q1H1M ONE Stop: 08/30/25 10:27 Last Infusion: 08/30/25 11:49 Dose: Infused Documented By: Admin: 08/30/25 10:48 Dose: 999 mls/hr Documented By: ARTUR Sodium Chloride (Ns) 500 mls @ 999 mls/hr IV .Q31M ONE Stop: 08/30/25 15:04 Last Infusion: 08/30/25 15:20 Dose: Infused Documented By: Admin: 08/30/25 14:49 Dose: 999 mls/hr Documented By: POLLY Labetalol HCl (Labetalol Inj 5 Mg/Ml Vial 20 Ml) 10 mg IVP X1 ONE Stop: 08/30/25 14:22 Last Admin: 08/30/25 14:41 Dose: Not Given Documented By: POLLY Non-Admin Reason: Discontinued Morphine Sulfate (Morphine Sulf Inj 4 Mg/Ml Vial) 4 mg IVP X1 ONE Stop: 08/30/25 07:13 Last Admin: 08/30/25 08:22 Dose: 4 mg Documented By: KIRT Morphine Sulfate (Morphine Sulf Inj 4 Mg/Ml Vial) 4 mg IVP X1 ONE Stop: 08/30/25 14:35 Last Admin: 08/30/25 14:41 Dose: Not Given Documented By: POLLY Non-Admin Reason: Discontinued Ondansetron HCl (Ondansetron Inj 2 Mg/Ml Inj 2 Ml) 4 mg IVP X1 ONE; Protocol Stop: 08/30/25 07:17 Last Admin: 08/30/25 08:23 Dose: 4 mg Documented By: KIRT Scopolamine (Scopolamine 1 Mg Tdsy) 1 mg TOP X1 ONE Stop: 08/30/25 14:35 Last Admin: 08/30/25 14:48 Dose: 1 mg Documented By: POLLY
--- NOTE | 2025-08-30 07:08 | EKG_ITS ---
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
--- NOTE | 2025-08-30 07:09 | XR_ITS ---
Examination: CT abdomen and pelvis without contrast. Coronal 3-D reconstructions. Sagittal 2-D reconstructions. Date and time of exam: August 30, 2025, 0741 hours, comparison June 07, 2024 INDICATIONS: Abdominal pain nausea vomiting today CTDI: vol (mGy): 4.55 DLP: (mGycm): 215 Technique: Axial images of the abdomen have been obtained, 3 mm slice thickness Intravenous contrast material has not been administered. Low dose protocols were performed. One or more of the following dose reduction techniques were used; automated exposure control, adjustment of the mA and/or KV according to patient size, use of iterative reconstruction technique. Findings: Small pericardial effusion No visualized liver or splenic lesion No gallstones No pancreatic mass Moderate renal scar formation, no renal or ureteral calculi, no hydronephrosis Small renal cysts Aortic calcification no aneurysmal dilatation No pericecal inflammatory change No bowel obstruction Colonic diverticulosis, no diverticulitis Absent uterus Contracted urinary bladder No pelvic mass Prominent osteopenia IMPRESSION: Given the patient's presentation, consider hepatobiliary sonography follow-up Moderate renal scar formation No renal or ureteral calculi, no hydronephrosis No CT findings of appendicitis bowel obstruction or diverticulitis
--- NOTE | 2025-08-30 07:09 | XR_ITS ---
EXAMINATION: AP chest single view TECHNIQUE: AP portable upright chest single view Date and time: August 30, 2025, 0721 hours, comparison December 10, 2024 INDICATIONS: Shortness of breath chest pain today FINDINGS: The film is rotated LPO Probable skinfold over the left hemithorax Normal heart size Moderate hyperexpansion No pneumonia or pulmonary edema IMPRESSION: COPD No pneumonia or pulmonary edema
[2025-08-30 08:14] LABS: Lactate (Lactic Acid) 2.0 mMol/L (0.4-2.0)
[2025-08-30 08:17] LABS: Basophils # (Auto) 0.0 Thou/mm3 (0.0-0.2); Basophils % (Auto) 0 % (0-2.5); Eosinophils # (Auto) 0.0 Thou/mm3 (0.0-0.5); Eosinophils % (Auto) 0 % (0-10); Hematocrit 32.9 % (36.0-46.0); Hemoglobin 11.4 g/dL (12.0-16.0); Immature Granulocytes Auto 0.02 Thou/mm3 (0.00-0.00); Lymphocytes # (Auto) 1.4 Thou/mm3 (1.0-4.8); Lymphocytes % (Auto) 17 % (10-50); Mean Corpuscular HGB Conc 34.7 g/dl (31.0-37.0); Mean Corpuscular Hemoglobin 31.1 pg (25.0-35.0); Mean Corpuscular Volume 90 fL (80-100); Monocytes # (Auto) 0.4 Thou/mm3 (0.0-0.8); Monocytes % (Auto) 5 % (0-12); Neutrophils # (Auto) 6.3 Thou/mm3 (1.8-7.7); Neutrophils % (Auto) 77 % (37-80); Nucleated Red Blood Cell # 0.00 Thou/mm3 (0.00-0.00); Nucleated Red Blood Cell % 0 /100 WBC (0); Platelet Count 175 Thou/mm3 (140-440); RDW Standard Deviation 47.6 fL (36.4-46.3); Red Blood Count 3.66 Miln/mm3 (4.00-5.20); White Blood Count 8.2 Thou/mm3 (3.6-11.0)
[2025-08-30] MEDS: MORPHINE SULF INJ 4 MG/ML VIAL IVP (08:22)
[2025-08-30] MEDS: ONDANSETRON INJ 2 MG/ML INJ 2 ML 4 MG IVP (08:23)
--- NOTE | 2025-08-30 08:47 | PC.NURSE ---
Pt states she has 10/10 abd pain that began last night, vss, at bedside attentive to pt. Pt medicated for pain, will cont w/poc.
--- NOTE | 2025-08-30 08:49 | XR_ITS ---
EXAMINATION: Abdomen sonogram complete TECHNIQUE: Transabdominal sonographic images abdomen Date and time: August 30, 2025, 0915 hours INDICATIONS: Lower abdominal pain and vomiting today FINDINGS: Normal gallbladder. Common bile duct 0.7 cm no stones Pancreatic head 1.8 cm. Aorta not enlarged. Liver normal size fatty infiltration. Normal hepatopetal portal venous flow. Patent IVC. Right kidney 11.5 cm renal cortex 1.7 cm Multiple cysts, the largest in the midpole 18 mm Left kidney 10.7 cm renal cortex 1.7 cm Multiple cysts, the largest in the upper pole 25 mm. Moderate renal scar formation Spleen 9.7 cm Partial visualization pericardial effusion IMPRESSION: Normal gallbladder Liver normal size. Bilateral benign renal cysts. Moderate bilateral renal parenchymal scar formation
[2025-08-30 09:11] LABS: Collection Type, Urine Catheter
[2025-08-30 09:15] LABS: Lipase 32 U/L (12-53)
[2025-08-30 09:19] LABS: Bilirubin,Urine Negative (Negative); Blood,Urine Negative (Negative); Clarity,Urine Clear (Clear/Hazy); Color,Urine Yellow (Lt Yel-Yel); Culture Indicated,Urine Not Indicated; Glucose, Urine Negative (Negative); Hyaline Casts,Urine < 1 /hpf (0-1); Ketones,Urine 1+ (Negative); Leukocyte Esterase,Urine Negative (Negative); Nitrite,Urine Negative (Negative); PH,Urine 8.5 (5.0-7.0); Protein,Urine 2+ (Neg - Trace); RBC,Urine 1 /hpf (0-3); Specific Gravity,Urine 1.020 (1.001-1.035); Squamous Epithelial Cell,Urine 1 /hpf (0-5); Urobilinogen,Urine Negative mg/dL (0.0-1.0); WBC,Urine 2 /hpf (0-5)
[2025-08-30 09:25] LABS: Alanine Aminotransferase 18 U/L (10-49); Albumin, Serum 4.6 gm/dL (3.4-4.8); Albumin/Globulin Ratio 1.2 (1.2-2.2); Alkaline Phosphatase 33 U/L (46-116); Anion Gap 18 (7-16); Aspartate Amino Transferase 33 U/L (0-34); BUN/Creatinine Ratio 15 Ratio (12-20); Bilirubin,Total 0.6 mg/dL (0.3-1.2); Blood Urea Nitrogen 21 mg/dL (9-23); Calcium 10.9 mg/dL (8.3-10.6); Calcium (Corrected) 10.9 mg/dL (8.5-10.1); Carbon Dioxide 17.4 mMol/L (20.0-31.0); Chloride 105 mMol/L (98-107); Creatinine (Component) 1.4 mg/dL (0.6-1.3); Globulin 4.0 gm/dL (2.3-3.5); Glucose 116 mg/dL (74-106); Magnesium 1.7 mg/dL (1.6-2.6); Osmolality,Calculated 283 (275-295); Phosphorous 2.4 mg/dL (2.4-5.1); Potassium 3.5 mMol/L (3.4-5.1); Sodium 140 mMol/L (136-145); Total Protein 8.6 gm/dL (5.7-8.2); Troponin I < 0.020 ng/mL (0.0-0.045); eGFR 41 See Note
[2025-08-30 09:28] LABS: Procalcitonin 0.03 ng/ml (0.0-0.49)
[2025-08-30 09:48] LABS: Base Excess, Venous 1 (-3-3); O2 Saturation, Venous 61 % (96-97); PCO2, Venous 22 mmHg (36-56); PO2, Venous 28 mmHg (15-58); pH, Venous 7.60 (7.33-7.66)
[2025-08-30 09:57] LABS: Amphetamine/Methamp Scrn,U Negative (Negative); Barbiturate Screen,Urine Negative (Negative); Benzodiazepines Screen,Urine Negative (Negative); Benzoylecgonine Screen, Ur Negative (Negative); Fentanyl Screen,Urine Negative (Negative); Opiate Screen,Urine Negative (Negative); THC Screen,Urine Positive (Negative)
[2025-08-30] MEDS: SODIUM CHLORIDE 0.9% 1000 ML 1,000 ML 999 ML IV (10:48)
[2025-08-30 11:01] LABS: Thyroid Stimulating Hormone 2.78 uIU/mL (0.55-4.78)
[2025-08-30] MEDS: SCOPOLAMINE 1 MG TDSY TOP (14:48)
[2025-08-30] MEDS: SODIUM CHLORIDE 0.9% 500 ML 500 ML 999 ML IV (14:49)
[2025-08-30] MEDS: DICYCLOMINE INJ 10 MG/ML 2ML VIAL IM (14:53)
[2025-08-30] MEDS: hydrALAZINE INJ 20 MG/ML VIAL 5 MG IVP (16:42)
--- NOTE | 2025-08-30 17:35 | PC.NURSE ---
PT ABLE TO TOLERATE SALTINES. PER PT IS NOT GOING BACK TO [facility], THAT HE IS GOING TO TAKE HER HOME.
[2025-08-31 22:47] LABS: Folate > 24.00 ng/mL (>5.38)
[2025-08-31 23:01] LABS: Parathyroid Hormone Intact 31.0 pg/ml (18.5-88.0)
== END 2025-08-30 17:34 | disposition home or self-care (01) ==
DX: T50.905A Adverse effect of unspecified drugs, medicaments and biological substances, initial encounter (principal); R11.2 Nausea with vomiting, unspecified
CPT/HCPCS: 36415; 71045; 74176; 76700; 80053; 80307; 81001; 82746; 82803; 83605; 83690; 83735; 83970; 84100; 84145; 84443; 84484; 85025; 87502; 87811; 93005; 96361; 96372; 96374; 96375; 99284; J0360; J0500; J2270; J2405; J7030; J7999; A9270